=== PATIENT | male | born 1965 | race Hispanic/Latino ===

== ENCOUNTER 2019-08-18 20:14 | Emergency (ER) | payer MEDICARE ==
[2019-08-18 23:18] LABS: Bilirubin,Urine NEG (Negative); Blood,Urine NEG (Negative); Color,Urine Yellow (Yellow); Mucus,Urine FEW /HPF; Protein,Urine <15 mg/dL mg/dL (Negative); Urobilinogen,Urine < 2.0 mg/dL (<2.0); WBC,Urine < 1.0 /HPF (0.0-6.0)
[2019-08-18 23:28] LABS: Amphetamine Screen,Urine PRESUMPTIVE NEGATIVE; Cocaine Screen,Urine PRESUMPTIVE NEGATIVE; Methadone Screen,Urine PRESUMPTIVE NEGATIVE; Opiate Screen,Urine PRESUMPTIVE NEGATIVE
[2019-08-18 23:52] LABS: Benzodiazepines Screen,Urine PRESUMPTIVE POSITIVE; Cannabinoid Screen,Urine PRESUMPTIVE POSITIVE
[2019-08-19 00:30] LABS: Eosinophils # (Auto) 0.3 K/mm3 (0.0-0.4); Eosinophils % (Auto) 5.2 % (0.0-4.3); Hematocrit 37.6 % (35.5-45.6); Lymphocytes # (Auto) 1.3 K/mm3 (1.2-5.4); Lymphocytes % (Auto) 26.8 % (13.4-35.0); Mean Corpuscular HGB Conc 35 % (32-34); Mean Corpuscular Volume 90 fl (84-94); Monocytes # (Auto) 0.6 K/mm3 (0.0-0.8); Platelet Count 125 K/mm3 (140-440); Red Blood Count 4.17 M/mm3 (3.65-5.03)
[2019-08-19 00:50] LABS: BUN/Creatinine Ratio 20; Blood Urea Nitrogen 16 mg/dL (9-20); Calcium 8.8 mg/dL (8.4-10.2); Hemolysis Index 11
--- NOTE | 2019-08-19 02:53 | Emergency Department Report ---
ED General Adult HPI - General Chief complaint: Medical Clearance Stated complaint: MEDICAL CLEARANCE Time Seen by Provider: 08/19/19 02:39 Source: patient Mode of arrival: Ambulatory Limitations: No Limitations - History of Present Illness Initial comments: 52-year-old male with history of alcohol abuse presents to the ED for medical clearance. Patient is seeking admission into [facility]. Patient states he has already detoxed off of alcohol. Associated Symptoms: denies other symptoms Treatments Prior to Arrival: none - Related Data Allergies Allergy/AdvReac Type Severity Reaction Status Date / Time No Known Allergies Allergy Verified 08/18/19 20:22 ED Review of Systems ROS: Stated complaint: MEDICAL CLEARANCE Other details as noted in HPI Comment: All other systems reviewed and negative Psychiatric: denies: auditory hallucinations, homicidal thoughts, suicidal thoughts ED Past Medical Hx - Past Medical History Previous Medical History?: Yes Hx Hypertension: Yes Hx Psychiatric Treatment: Yes (ALCOHOLISM) Additional medical history: afib with RVR, CAD, MYOPATHY - Surgical History Past Surgical History?: Yes Hx Internal Defibrillator: Yes (AICD) - Social History Smoking Status: Current Every Day Smoker Substance Use Type: Alcohol ED Physical Exam - General Limitations: No Limitations General appearance: alert, in no apparent distress - Head Head exam: Present: atraumatic, normocephalic - Eye Eye exam: Present: normal appearance - ENT ENT exam: Present: mucous membranes moist - Neck Neck exam: Present: normal inspection - Respiratory Respiratory exam: Present: normal lung sounds bilaterally. Absent: respiratory distress - Cardiovascular Cardiovascular Exam: Present: regular rate, normal rhythm - GI/Abdominal GI/Abdominal exam: Absent: distended - Extremities Exam Extremities exam: Present: normal inspection - Neurological Exam Neurological exam: Present: alert, oriented X3 - Psychiatric Psychiatric exam: Present: normal affect, normal mood - Skin Skin exam: Present: warm, dry, intact, normal color ED Course Vital Signs 08/18/19 08/18/19 20:24 22:22 Temperature 98.1 F 98 F Pulse Rate 83 80 Respiratory 18 18 Rate Blood Pressure 146/88 146/88 O2 Sat by Pulse 98 98 Oximetry ED Medical Decision Making - Lab Data Result diagrams: 08/18/19 23:53 08/18/19 23:53 - Medical Decision Making Labs unremarkable. Patient is medically clear for [facility] admission. Critical care attestation.: If time is entered above; I have spent that time in minutes in the direct care of this critically ill patient, excluding procedure time. ED Disposition Clinical Impression: Medical clearance for psychiatric admission Disposition: DC-01 TO HOME OR SELFCARE Is pt being admited?: No Condition: Stable Instructions: Abuse of Alcohol (ED) Time of Disposition: 02:57
[2019-08-19 03:38] VITALS: BP 133/97
== END 2019-08-19 03:44 | disposition home or self-care (01) ==
LOC: ED 20:14
DX: I10 Essential (primary) hypertension (principal); F17.200 Nicotine dependence, unspecified, uncomplicated; Z04.6 Encounter for general psychiatric examination, requested by authority; Z98.890 Other specified postprocedural states
CPT/HCPCS: 36415; 80048; 80307; 80320; 81001; 85025; G0480

== ENCOUNTER 2019-11-27 04:01 | Observation (INO) | payer MEDICARE ==
[2019-11-27] MEDS ORDERED: ASPIRIN 325 MG TAB PO ONE ×2 (04:10)
--- NOTE | 2019-11-27 04:12 | Emergency Department Report ---
ED Chest Pain HPI - General Stated Complaint: CHEST PAIN PUI?: No Time Seen by Provider: 11/27/19 04:08 Source: patient, EMS Mode of arrival: Ambulatory Limitations: No Limitations - History of Present Illness Initial Comments: Patient is a 54-year-old male that presents emergency room with complaints of chest pain. Patient states his chest pain started 7 hours ago. Patient states his chest pain is better with rest and worse with exertion. Patient states his chest pain is a 7 out of 10. Patient states that he had a few drinks today. Patient states he has an extensive cardiac history to include CAD, MIs, CHF, AICD. MD Complaint: chest pain -: Sudden Onset: during rest Pain Location: substernal, left chest Pain Radiation: none Severity: severe Consistency: constant Improves With: rest Worsens With: exertion re: denies: nausea, vomting, diaphoresis, dyspnea, sense of impending doom Other Symptoms: denies: cough, fever, syncope, rash, acid taste in mouth, leg swelling, palpitations, burping Treatments Prior to Arrival: none Aspirin use within the Past 7 Days: (1) Yes - Related Data On Oral Contraceptives: No Allergies Allergy/AdvReac Type Severity Reaction Status Date / Time No Known Allergies Allergy Verified 08/18/19 20:22 Heart Score - HEART Score History: Moderately suspicious EKG: Non-specific Age: 45-65 Risk factors: > 3 risk factors or hx of atherosclerotic disease Troponin: < normal limit HEART Score: 5 ED Review of Systems ROS: Stated complaint: CHEST PAIN Other details as noted in HPI Constitutional: denies: chills, fever Eyes: denies: eye pain, eye discharge, vision change ENT: denies: ear pain, throat pain Respiratory: denies: cough, shortness of breath, wheezing Cardiovascular: chest pain. denies: palpitations Endocrine: no symptoms reported Gastrointestinal: denies: abdominal pain, nausea, diarrhea Genitourinary: denies: urgency, dysuria Musculoskeletal: denies: back pain, joint swelling, arthralgia Skin: denies: rash, lesions Neurological: denies: headache, weakness, paresthesias Psychiatric: denies: anxiety, depression Hematological/Lymphatic: denies: easy bleeding, easy bruising ED Past Medical Hx - Past Medical History Previous Medical History?: Yes Hx Hypertension: Yes Hx Heart Attack/AMI: Yes Hx Congestive Heart Failure: Yes Hx Psychiatric Treatment: Yes (ALCOHOLISM) Additional medical history: afib with RVR, CAD, MYOPATHY - Surgical History Past Surgical History?: Yes Hx Internal Defibrillator: Yes (AICD) - Family History Family history: no significant - Social History Smoking Status: Current Every Day Smoker Substance Use Type: Alcohol ED Physical Exam - General General appearance: alert, in no apparent distress - Head Head exam: Present: atraumatic, normocephalic - Eye Eye exam: Present: normal appearance - ENT ENT exam: Present: mucous membranes moist - Neck Neck exam: Present: normal inspection - Respiratory Respiratory exam: Present: normal lung sounds bilaterally. Absent: respiratory distress, wheezes, rales - Cardiovascular Cardiovascular Exam: Present: regular rate, normal rhythm. Absent: systolic murmur, diastolic murmur, rubs, gallop - GI/Abdominal GI/Abdominal exam: Present: soft, normal bowel sounds. Absent: distended, tenderness, guarding - Rectal Rectal exam: Present: deferred - Extremities Exam Extremities exam: Present: normal inspection - Back Exam Back exam: Present: normal inspection - Neurological Exam Neurological exam: Present: alert, oriented X3 - Psychiatric Psychiatric exam: Present: normal affect, normal mood - Skin Skin exam: Present: warm, dry, intact, normal color. Absent: rash ED Course Vital Signs 11/27/19 04:10 Temperature 97.9 F Pulse Rate 82 Respiratory 16 Rate Blood Pressure 123/82 [right arm] O2 Sat by Pulse 100 Oximetry - Reevaluation(s) Reevaluation #1: I discussed all results with patient. I discussed plan of care with patient. Patient agrees with plan of care and admission. Patient to be admitted to the hospitalist service. 11/27/19 05:36 - Consultations Consultation #1: Hospitalist consulted for admission. Hospitalist to admit patient. 11/27/19 05:36 ED Medical Decision Making - Lab Data Result diagrams: 11/27/19 04:27 11/27/19 04:27 - EKG Data -: EKG Interpreted by Me EKG shows normal: axis, intervals, QRS complexes, ST-T waves Rate: normal - EKG Data Interpretation: other (afib) - Radiology Data Radiology results: report reviewed, image reviewed CHEST 1 VIEW 0426 INDICATION / CLINICAL INFORMATION: MAIN: Chest Pain X 1 LA. COMPARISON: None available. FINDINGS: SUPPORT DEVICES: A left subclavian unipolar transvenous pacer is seen with lead tip appearing to be in satisfactory position. HEART / MEDIASTINUM: No significant abnormality. LUNGS / PLEURA: No obvious acute infiltrates are seen. Pulmonary vascularity appears within normal limits. No pleural effusions are seen. Probable mild scarring is seen in the right lateral base. No pneumothorax. ADDITIONAL FINDINGS: No significant additional findings. IMPRESSION: No significant acute abnormality - Medical Decision Making Patient is a 54-year-old male patient that presents emergency room with complaints of chest pain. Patient was drinking today prior to coming to the emergency room. Patient has a significant cardiac history. Patient has a CAD history and will require a rule out of ACS. Patient admitted to the hospitalist service to rule out ACS and further evaluation and treatment. Patient was given aspirin in the ER which improved his pain. Patient is EKG is negative for STEMI but shows A. fib. Patient had a chest x-ray which shows no acute findings. - Differential Diagnosis Chest pain, ACS, CAD Critical Care Time: Yes Critical care time in (mins) excluding proc time.: 35 Critical care attestation.: If time is entered above; I have spent that time in minutes in the direct care of this critically ill patient, excluding procedure time. Critical Care Time: 35 minutes ED Disposition Clinical Impression: Chest pain Qualifiers: Chest pain type: unspecified Qualified Code(s): R07.9 - Chest pain, unspecified CAD (coronary artery disease) Qualifiers: Coronary Disease-Associated Artery/Lesion type: unspecified vessel or lesion type [place] vs. transplanted heart: [place] heart Associated angina: angina presence unspecified Qualified Code(s): I25.10 - Atherosclerotic heart disease of [place] coronary artery without angina pectoris Acute alcohol intoxication Qualifiers: Complication of substance-induced condition: uncomplicated Qualified Code(s): F10.920 - Alcohol use, unspecified with intoxication, uncomplicated Disposition: DC-09 OP ADMIT IP TO THIS HOSP Is pt being admited?: Yes Does the pt Need Aspirin: No Condition: Critical Time of Disposition: 05:36
[2019-11-27 04:46] LABS: Bilirubin,Urine NEG (Negative); Blood,Urine NEG (Negative); Color,Urine Straw (Yellow); Protein,Urine <15 mg/dL mg/dL (Negative); Urobilinogen,Urine < 2.0 mg/dL (<2.0); WBC,Urine < 1.0 /HPF (0.0-6.0)
[2019-11-27 04:52] LABS: Amphetamine Screen,Urine PRESUMPTIVE NEGATIVE; Benzodiazepines Screen,Urine PRESUMPTIVE NEGATIVE; Cocaine Screen,Urine PRESUMPTIVE NEGATIVE; Methadone Screen,Urine PRESUMPTIVE NEGATIVE; Opiate Screen,Urine PRESUMPTIVE NEGATIVE
[2019-11-27 05:07] LABS: Basophils % (Auto) 0.4 % (0.0-1.8); Eosinophils # (Auto) 0.1 K/mm3 (0.0-0.4); Eosinophils % (Auto) 1.9 % (0.0-4.3); Hematocrit 46.7 % (35.5-45.6); Hemoglobin 15.5 gm/dl (11.8-15.2); Lymphocytes # (Auto) 2.4 K/mm3 (1.2-5.4); Lymphocytes % (Auto) 41.4 % (13.4-35.0); Mean Corpuscular HGB Conc 33 % (32-34); Mean Corpuscular Volume 90 fl (84-94); Monocytes # (Auto) 0.5 K/mm3 (0.0-0.8); Monocytes % (Auto) 8.1 % (0.0-7.3); Platelet Count 187 K/mm3 (140-440); Red Blood Count 5.18 M/mm3 (3.65-5.03); Red Cell Distribution Width 16.4 % (13.2-15.2)
[2019-11-27 05:20] LABS: Alanine Aminotransferase 38 units/L (7-56); Albumin 4.4 g/dL (3.9-5); BUN/Creatinine Ratio 15; Blood Urea Nitrogen 9 mg/dL (9-20); Calcium 8.6 mg/dL (8.4-10.2); Hemolysis Index 68
--- NOTE | 2019-11-27 05:25 | XRay Report ---
CHEST 1 VIEW 0426 INDICATION / CLINICAL INFORMATION: MAIN: Chest Pain X 1 LA. COMPARISON: None available. FINDINGS: SUPPORT DEVICES: A left subclavian unipolar transvenous pacer is seen with lead tip appearing to be i n satisfactory position. HEART / MEDIASTINUM: No significant abnormality. LUNGS / PLEURA: No obvious acute infiltrates are seen. Pulmonary vascularity appears within normal li mits. No pleural effusions are seen. Probable mild scarring is seen in the right lateral base. No pne umothorax. ADDITIONAL FINDINGS: No significant additional findings. IMPRESSION: No significant acute abnormality Signer Name: Jose Luis Hamilton MD Signed: 11/27/2019 5:20 AM Workstation Name: [id number]
[2019-11-27 05:34] LABS: Cannabinoid Screen,Urine PRESUMPTIVE POSITIVE
[2019-11-27] MEDS ORDERED: MORPHINE 2 MG/1 ML INJ IV PRN (07:04)
[2019-11-27] MEDS ORDERED: ACETAMINOPHEN 650 MG RECT SUPP PR PRN (07:06)
--- NOTE | 2019-11-27 07:14 | History and Physical Report ---
History of Present Illness Date of examination: 11/10/19 Date of admission: 11/27/2019 Chief complaint: Chief complaint is chest pain History of present illness: History of presenting illness, patient is a 54-year-old male who has been having retrosternal chest pain going on for some hours and associated with shortness of breath, there is no history of fever or chills and no history of cough. Patient also denied history of nausea and vomiting and denied history of diaphoresis Past History Past Medical History: acute MS, atrial fib, CAD, heart failure Past Surgical History: Other (AICD) Social history: no significant social history Family history: no significant family history Medications and Allergies Allergies Allergy/AdvReac Type Severity Reaction Status Date / Time No Known Allergies Allergy Verified 08/18/19 20:22 Active Meds: Active Medications Acetaminophen (Tylenol) 650 mg UT Q4H PRN PRN Reason: Pain, Mild (1-3) Aspirin (Aspirin) 325 mg PO QDAY DI Heparin Sodium (Porcine) (Heparin) 5,000 unit SUB-Q Q12HR DI Morphine Sulfate (Morphine) 2 mg IV Q5MIN PRN PRN Reason: Chest Pain unrelieved by NTG Nitroglycerin (Nitro-Bid 2%) 0.5 inch TP QIDNTG DI; Protocol Nitroglycerin (Nitrostat) 0.4 mg SL .Q5MIN PRN PRN Reason: Chest Pain Ondansetron HCl (Zofran) 4 mg IV Q8H PRN PRN Reason: Nausea And Vomiting Review of Systems Constitutional: no weight loss, no weight gain, no fever, no chills, no sweats, no anorexia, no fatigue, no weakness, no malaise Eyes: bilateral: other (NO BILATERASL EYE SYMPTOMS) Ears, nose, mouth and throat: no ear pain, no ear discharge, no tinnitis, no decreased hearing, no nose pain, no nasal congestion, no nasal discharge, no dental pain, no dysphagia, no hoarseness, no sore throat, no swelling in mouth, no swelling in throat, no headache, no vertigo Cardiovascular: chest pain, shortness of breath, no orthopnea, no syncope, no lightheadedness, no claudication, no phlebitis, no high blood pressure Respiratory: shortness of breath, no cough, no excessive sputum, no hemoptysis, no congestion, no wheezing Gastrointestinal: no abdominal pain, no nausea, no vomiting, no diarrhea, no constipation, no hematochezia, no loss of appetite, no early satiety, no heartburn Genitourinary Male: no dysuria, no flank pain, no discharge, no urinary frequency, no nocturia, no testicular lump Rectal: no pain Integumentary: no rash, no pruritis, no redness, no sores, no wounds, no jaundice, no bullae, no lesions, no darkening of skin, no depigmentation, no acne, no striae, no hirsutism, no foot/leg ulcers Neurological: no head injury, no weakness, no parathesias, no numbness, no seizures, no syncope, no tremors, no vertigo, no headaches, no convulsions, no aphasia, no double vision, no loss of vision Psychiatric: no anxiety, no insomnia, no change in appetite, no depression, no hopelessness Endocrine: no cold intolerance, no heat intolerance, no polyuria, no nocturia, no deepening of the voice, no thyroid mass, no palpatations, no high blood sugars, no low blood sugars Hematologic/Lymphatic: no easy bruising, no easy bleeding, no lymphadenopathy, no lymphedema Allergic/Immunologic: no urticaria, no allergic rhinitis, no persistent infecti ons, no anaphylaxis, no gluten intolerance, no seasonal allergies Exam - Constitutional Vitals: Temp Pulse Resp BP Pulse Ox 97.9 F 83 17 137/102 93 11/27/19 04:10 11/27/19 06:11 11/27/19 06:11 11/27/19 06:11 11/27/19 06:11 General appearance: Present: no acute distress - EENT Eyes: Present: PERRL, EOM intact - Neck Neck: Present: supple, normal ROM - Respiratory Respiratory effort: normal - Cardiovascular Rhythm: regular Heart Sounds: Present: S1 & S2. Absent: gallop, systolic murmur, diastolic murmur, rub - Extremities Extremities: no ischemia, No edema Peripheral Pulses: within normal limits - Abdominal General gastrointestinal: Present: non-tender, non-distended. Absent: soft, tender, distended, rigid, hepatomegaly, splenomegaly Male genitourinary: Present: deferred - Rectal Rectal Exam: deferred - Integumentary Integumentary: Present: clear, warm. Absent: dry, jaundice, rash, clammy - Musculoskeletal Musculoskeletal: strength equal bilaterally - Psychiatric Psychiatric: appropriate mood/affect MICHELLE score - Michelle Score Aspirin use within the Past 7 Days: (1) Yes Results - Labs CBC & Chem 7: 11/27/19 04:27 11/27/19 04:27 Labs: Laboratory Last Values WBC 5.8 K/mm3 (4.5-11.0) 11/27/19 04: RBC 5.18 M/mm3 (3.65-5.03) H 11/27/19 04:27 Hgb 15.5 gm/dl (11.8-15.2) H 11/27/19 04: Hct 46.7 % (35.5-45.6) H 11/27/19 04: MCV 90 fl (84-94) 11/27/19 04: MCH 30 pg (28-32) 11/27/19 04: MCHC 33 % (32-34) 11/27/19 04: RDW 16.4 % (13.2-15.2) H 11/27/19 04: Plt Count 187 K/mm3 (140-440) 11/27/19 04: Lymph % (Auto) 41.4 % (13.4-35.0) H 11/27/19 04: [place] % (Auto) 8.1 % (0.0-7.3) H 11/27/19 04: Eos % (Auto) 1.9 % (0.0-4.3) 11/27/19 04: Baso % (Auto) 0.4 % (0.0-1.8) 11/27/19 04:27 Lymph # 2.4 K/mm3 (1.2-5.4) 11/27/19 04: [place] # 0.5 K/mm3 (0.0-0.8) 11/27/19 04:27 Eos # 0.1 K/mm3 (0.0-0.4) 11/27/19 04:27 Baso # 0.0 K/mm3 (0.0-0.1) 11/27/19 04: Seg Neutrophils % 48.2 % (40.0-70.0) 11/27/19 04:27 Seg Neutrophils # 2.8 K/mm3 (1.8-7.7) 11/27/19 04:27 Sodium 143 mmol/L (137-145) 11/27/19 04:27 Potassium 4.4 mmol/L (3.6-5.0) 11/27/19 04:27 Chloride 102.8 mmol/L (98-107) 11/27/19 04:27 Carbon Dioxide 22 mmol/L (22-30) 11/27/19 04:27 Anion Gap 23 mmol/L 11/27/19 04:27 BUN 9 mg/dL (9-20) 11/27/19 04:27 Creatinine 0.6 mg/dL (0.8-1.5) L 11/27/19 04:27 Estimated GFR > 60 ml/min 11/27/19 04:27 BUN/Creatinine Ratio 15 % 11/27/19 04:27 Glucose 83 mg/dL (75-100) 11/27/19 04:27 Calcium 8.6 mg/dL (8.4-10.2) 11/27/19 04:27 Total Bilirubin 0.40 mg/dL (0.1-1.2) 11/27/19 04:27 AST 66 units/L (5-40) H 11/27/19 04:27 ALT 38 units/L (7-56) 11/27/19 04:27 Alkaline Phosphatase 92 units/L (35-129) 11/27/19 04:27 Troponin T < 0.010 ng/mL (0.00-0.029) 11/27/19 04:27 Total Protein 7.8 g/dL (6.3-8.2) 11/27/19 04:27 Albumin 4.4 g/dL (3.9-5) 11/27/19 04:27 Albumin/Globulin Ratio 1.3 % 11/27/19 04:27 Urine Color Straw (Yellow) 11/27/19 04:10 Urine Turbidity Clear (Clear) 11/27/19 04:10 Urine pH 5.0 (5.0-7.0) 11/27/19 04:10 Ur Specific [place] 1.009 (1.003-1.030) 11/27/19 04:10 Urine Protein <15 mg/dl mg/dL (Negative) 11/27/19 04:10 Urine Glucose (UA) Neg mg/dL (Negative) 11/27/19 04:10 Urine Ketones Neg mg/dL (Negative) 11/27/19 04:10 Urine Blood Neg (Negative) 11/27/19 04:10 Urine Nitrite Neg (Negative) 11/27/19 04:10 Urine Bilirubin Neg (Negative) 11/27/19 04:10 Urine Urobilinogen < 2.0 mg/dL (<2.0) 11/27/19 04:10 Ur Leukocyte Esterase Neg (Negative) 11/27/19 04:10 Urine WBC (Auto) < 1.0 /HPF (0.0-6.0) 11/27/19 04:10 Urine RBC (Auto) 1.0 /HPF (0.0-6.0) 11/27/19 04:10 U Epithel Cells (Auto) < 1.0 /HPF (0-13.0) 11/27/19 04:10 Urine Opiates Screen Presumptive negative 11/27/19 04:10 Urine Methadone Screen Presumptive negative 11/27/19 04:10 Ur Barbiturates Screen Presumptive negative 11/27/19 04:10 Ur Phencyclidine Scrn Presumptive negative 11/27/19 04:10 Ur Amphetamines Screen Presumptive negative 11/27/19 04:10 U Benzodiazepines Scrn Presumptive negative 11/27/19 04:10 Urine Cocaine Screen Presumptive negative 11/27/19 04:10 U Marijuana (THC) Screen Presumptive positive 11/27/19 04:10 Drugs of Abuse Note Disclamer 11/27/19 04:10 Plasma/Serum Alcohol 0.34 % (0-0.07) H 11/27/19 04:27 Assessment and Plan - Patient Problems (1) Acute alcohol intoxication Current Visit: Yes Status: Acute Qualifiers: Complication of substance-induced condition: uncomplicated Qualified Code(s): F10.920 - Alcohol use, unspecified with intoxication, uncomplicated (2) CAD (coronary artery disease) Current Visit: Yes Status: Acute Qualifiers: Coronary Disease-Associated Artery/Lesion type: unspecified vessel or lesion type [place] vs. transplanted heart: [place] heart Associated angina: angina presence unspecified Qualified Code(s): I25.10 - Atherosclerotic heart disease of [place] coronary artery without angina pectoris (3) Chest pain Current Visit: Yes Status: Acute Qualifiers: Chest pain type: unspecified Qualified Code(s): R07.9 - Chest pain, unspecified Plan to address problem: 1 patient will be on chest pain observation plan and will be on telemetry 2. Patient will have serial cardiac enzyme involving troponin total CPK and CK and CK-MB check 6 hourly x2 more levels 3. Patient will be on Nitropaste half inch to anterior chest wall every 6 hours 4 patient will have cardiology consult with Dr. Bloom because of chest pain atrial fibrillation and presence of AICD placement 5 patient will be on IV morphine 2mg every 5 minutes as needed for chest pain per protocol 6. Patient will be on IV Zofran 4 mg every 6 hours as needed for nausea and vomiting 7 patient will be on oxygen by nasal cannula at 2 L/min and will be on Tylenol 650 mg by mouth every 4 hours for fever headache
[2019-11-27] MEDS ORDERED: ONDANSETRON 4 MG/2 ML INJ IV PRN (07:30)
[2019-11-27] MEDS ORDERED: NITROGLYCERIN 0.4 MG TAB SUBL SL PRN (07:30)
[2019-11-27] MEDS ORDERED: LORazepam 2 MG/ML VIAL IV PRN ×3 (08:35)
[2019-11-27] MEDS ORDERED: THIAMINE 100 MG, FOLIC ACID 1 MG, MULTIPLE VITAMIN INJ, ADULT 10 ML in SODIUM CHLORIDE ... IV ONE (09:00)
[2019-11-27] MEDS ORDERED: HEPARIN 5,000 UNIT/1 ML VIAL SUB-Q SCH (10:00)
[2019-11-27] MEDS ORDERED: NITROGLYCERIN 2% OINT 1 GM TP SCH (10:00)
[2019-11-27] MEDS ORDERED: ASPIRIN 325 MG TAB PO SCH (10:00)
[2019-11-27 10:32] VITALS: BP 120/90
== END 2019-11-27 10:32 | disposition left against medical advice (07) ==
LOC: ED 04:01 → SUATTDRO 04:01 → 4A 05:37
PROVIDERS: ADMIT Internal Medicine; ATTEND Internal Medicine
DX: R07.89 Other chest pain (principal); I25.10 Atherosclerotic heart disease of native coronary artery without angina pectoris; F10.920 Alcohol use, unspecified with intoxication, uncomplicated; I25.2 Old myocardial infarction; I48.91 Unspecified atrial fibrillation; I11.0 Hypertensive heart disease with heart failure; I50.9 Heart failure, unspecified; Z95.810 Presence of automatic (implantable) cardiac defibrillator; Z79.82 Long term (current) use of aspirin; Z79.899 Other long term (current) drug therapy
CPT/HCPCS: 36415; 71045; 80053; 80307; 81001; 84484; 85025; 93005; 99291; G0378; J3411; J7030; 80320; G0480

== ENCOUNTER 2019-12-24 20:28 | Observation (INO) | payer MEDICARE ==
[2019-12-24] MEDS ORDERED: ASPIRIN 325 MG TAB PO ONE (21:15)
--- NOTE | 2019-12-24 21:18 | Emergency Department Report ---
ED Chest Pain HPI - General Chief Complaint: Alcohol Stated Complaint: POSSIBLE ETOH CHEST PAIN PUI?: No Time Seen by Provider: 12/24/19 21:14 Source: EMS Mode of arrival: Stretcher Limitations: No Limitations, Altered Mental Status - History of Present Illness Initial Comments: Patient is a 54-year-old male that presents emergency room with complaints of chest pain and shortness of breath x3 hours. Patient states his been drinking today. Patient states he does not know how much he drank. Patient is answering questions appropriately. Patient states that his chest pain is in the center of his chest and is nonradiating. Patient states it is a 8 out of 10. Patient states that his chest pain or shortness of breath are better with rest and worse with exertion. Patient states he has a past medical history of CAD, DC, A. fib, AICD, smoking. Patient states he drinks every day. MD Complaint: chest pain -: Sudden, hour(s) Onset: during rest Pain Location: substernal, left chest Pain Radiation: none Severity: severe Severity scale (0 -10): 8 Quality: heaviness, sharp Consistency: constant Improves With: rest Worsens With: exertion re: dyspnea. denies: nausea, vomting, diaphoresis, sense of impending doom Other Symptoms: denies: cough, fever, syncope, rash, acid taste in mouth, leg swelling, palpitations, burping Treatments Prior to Arrival: none Aspirin use within the Past 7 Days: (0) No - Related Data On Oral Contraceptives: No Allergies Allergy/AdvReac Type Severity Reaction Status Date / Time No Known Allergies Allergy Verified 08/18/19 20:22 Heart Score - HEART Score History: Moderately suspicious EKG: Non-specific Age: 45-65 Risk factors: > 3 risk factors or hx of atherosclerotic disease Troponin: < normal limit HEART Score: 5 ED Review of Systems ROS: Stated complaint: POSSIBLE ETOH CHEST PAIN Other details as noted in HPI Constitutional: denies: chills, fever Eyes: denies: eye pain, eye discharge, vision change ENT: denies: ear pain, throat pain Respiratory: shortness of breath, SOB with exertion, SOB at rest. denies: cough, wheezing Cardiovascular: chest pain, dyspnea on exertion. denies: palpitations Endocrine: no symptoms reported Gastrointestinal: denies: abdominal pain, nausea, diarrhea Genitourinary: denies: urgency, dysuria Musculoskeletal: denies: back pain, joint swelling, arthralgia Skin: denies: rash, lesions Neurological: denies: headache, weakness, paresthesias Psychiatric: denies: anxiety, depression Hematological/Lymphatic: denies: easy bleeding, easy bruising ED Past Medical Hx - Past Medical History Previous Medical History?: Yes Hx Hypertension: Yes Hx Heart Attack/AMI: Yes Hx Congestive Heart Failure: Yes Hx Psychiatric Treatment: Yes (ALCOHOLISM) Hx COPD: Yes Additional medical history: afib with RVR, CAD, MYOPATHY - Surgical History Past Surgical History?: Yes Hx Internal Defibrillator: Yes (AICD) - Family History Family history: no significant - Social History Smoking Status: Current Every Day Smoker Substance Use Type: Alcohol, Marijuana ED Physical Exam - General Limitations: No Limitations General appearance: alert, in no apparent distress - Head Head exam: Present: atraumatic, normocephalic - Eye Eye exam: Present: normal appearance - ENT ENT exam: Present: mucous membranes dry - Neck Neck exam: Present: normal inspection - Respiratory Respiratory exam: Present: normal lung sounds bilaterally. Absent: respiratory distress, wheezes, rales - Cardiovascular Cardiovascular Exam: Present: regular rate, normal rhythm. Absent: systolic murmur, diastolic murmur, rubs, gallop - GI/Abdominal GI/Abdominal exam: Present: soft, normal bowel sounds - Rectal Rectal exam: Present: deferred - Extremities Exam Extremities exam: Present: normal inspection - Back Exam Back exam: Present: normal inspection - Neurological Exam Neurological exam: Present: alert, oriented X3 - Psychiatric Psychiatric exam: Present: normal affect, normal mood - Skin Skin exam: Present: warm, dry, intact, normal color. Absent: rash ED Course Vital Signs 12/24/19 12/24/19 12/24/19 20:45 20:48 21:17 Temperature 98.9 F Pulse Rate 55 L 57 L 58 L Respiratory 14 16 16 Rate Blood Pressure 109/73 109/73 [Right] O2 Sat by Pulse 97 97 98 Oximetry 12/24/19 12/24/19 21:49 23:43 Temperature 97.8 F Pulse Rate 56 L Respiratory 18 Rate Blood Pressure 95/70 [Right] O2 Sat by Pulse 98 Oximetry - Reevaluation(s) Reevaluation #1: I discussed all results with patient. I discussed plan of care with patient. Patient agrees with plan of care and admission. Patient to be admitted to the hospitalist service. 12/24/19 23:06 - Consultations Consultation #1: Hospitalist consulted for admission. Hospitalist to admit patient. 12/24/19 23:06 - EJ/Peripheral Line Neck R Time Out Performed: Yes Indications: nurses unable to establis Skin Cleansed in Sterile Fashion: Yes Size: 20 Dressing Placed: Tegaderm, tape Patient Tolerated Procedure: well, no complications MICHELLE score - Michelle Score Age > 65: (1) Yes Aspirin use within the Past 7 Days: (1) Yes 3 or more CAD Risk Factors: (1) Yes 2 or more Angina events in past 24 hrs: (0) No Known CAD with more than 50% Stenosis: (0) No Elevated Cardiac Markers: (0) No ST Deviation Greater than 0.5mm: (0) No MICHELLE Score: 3 ED Medical Decision Making - Lab Data Result diagrams: 12/24/19 21:33 12/24/19 21:33 - EKG Data -: EKG Interpreted by Ca EKG shows normal: intervals, QRS complexes, ST-T waves Rate: normal - EKG Data Interpretation: other (Atrial fib, V pacer) - Radiology Data Radiology results: report reviewed, image reviewed CHEST 1 VIEW INDICATION / CLINICAL INFORMATION: Chest Pain. COMPARISON: 11/27/2019 FINDINGS: SUPPORT DEVICES: Left-sided pacemaker HEART / MEDIASTINUM: No significant abnormality. LUNGS / PLEURA: No significant pulmonary or pleural abnormality. No p neumothorax. ADDITIONAL FINDINGS: No significant additional findings. IMPRESSION: No acute disease or interval change from 11/27/2019 - Medical Decision Making Patient is a 54-year-old male that presents emergency room with complaints of chest pain. Patient intoxicated. Patient has a long cardiac history. Patient's heart score is elevated. Patient's labs are essentially unremarkable except for elevated blood alcohol and UDS positive for THC and cocaine. Patient admitted to the hospitalist service to rule out ACS and for further evaluation and treatment. Patient given aspirin early in his ER stay. Patient's chest x- ray is negative for acute findings. Patient's EKG does not show a STEMI. Patient's EKG shows A. fib and a regular rate. - Differential Diagnosis Chest pain, ACS, intoxication, drug use, S OB Critical Care Time: Yes Critical care time in (mins) excluding proc time.: 35 Critical care attestation.: If time is entered above; I have spent that time in minutes in the direct care of this critically ill patient, excluding procedure time. Critical Care Time: 35 minutes ED Disposition Clinical Impression: SOB (shortness of breath), Cocaine abuse CAD (coronary artery disease) Qualifiers: Coronary Disease-Associated Artery/Lesion type: kaw artery [place] vs. transplanted heart: kaw heart Associated angina: with unspecified angina Qualified Code(s): I25.119 - Atherosclerotic heart disease of kaw coronary artery with unspecified angina pectoris Chest pain Qualifiers: Chest pain type: unspecified Qualified Code(s): R07.9 - Chest pain, unspecified Acute alcohol intoxication Qualifiers: Complication of substance-induced condition: uncomplicated Qualified Code(s): F10.920 - Alcohol use, unspecified with intoxication, uncomplicated Disposition: DC-09 OP ADMIT IP TO THIS HOSP Is pt being admited?: Yes Does the pt Need Aspirin: No Condition: Critical Time of Disposition: 23:07
[2019-12-24 21:45] LABS: Basophils # (Auto) 0.1 K/mm3 (0.0-0.1); Eosinophils # (Auto) 0.2 K/mm3 (0.0-0.4); Eosinophils % (Auto) 3.1 % (0.0-4.3); Hematocrit 43.6 % (35.5-45.6); Hemoglobin 14.6 gm/dl (11.8-15.2); Lymphocytes # (Auto) 3.1 K/mm3 (1.2-5.4); Lymphocytes % (Auto) 40.4 % (13.4-35.0); Mean Corpuscular HGB Conc 34 % (32-34); Mean Corpuscular Volume 89 fl (84-94); Monocytes # (Auto) 0.7 K/mm3 (0.0-0.8); Monocytes % (Auto) 9.4 % (0.0-7.3); Platelet Count 294 K/mm3 (140-440); Red Blood Count 4.88 M/mm3 (3.65-5.03); Red Cell Distribution Width 14.9 % (13.2-15.2)
[2019-12-24 21:56] LABS: INR 1.09 (0.87-1.13); Partial Thromboplastin Time 37.1 Sec. (24.2-36.6)
[2019-12-24 22:08] LABS: Alanine Aminotransferase 27 units/L (7-56); BUN/Creatinine Ratio 10; Blood Urea Nitrogen 7 mg/dL (9-20); Calcium 8.4 mg/dL (8.4-10.2); Hemolysis Index 11
--- NOTE | 2019-12-24 22:20 | XRay Report ---
CHEST 1 VIEW INDICATION / CLINICAL INFORMATION: Chest Pain. COMPARISON: 11/27/2019 FINDINGS: SUPPORT DEVICES: Left-sided pacemaker HEART / MEDIASTINUM: No significant abnormality. LUNGS / PLEURA: No significant pulmonary or pleural abnormality. No pneumothorax. ADDITIONAL FINDINGS: No significant additional findings. IMPRESSION: No acute disease or interval change from 11/27/2019 Signer Name: Kurtis Vivar MD FACR Signed: 12/24/2019 10:16 PM Workstation Name: [id number]
[2019-12-24 22:24] LABS: Bilirubin,Urine NEG (Negative); Blood,Urine NEG (Negative); Color,Urine Straw (Yellow); Protein,Urine <15 mg/dL mg/dL (Negative); Urobilinogen,Urine < 2.0 mg/dL (<2.0)
[2019-12-24 22:31] LABS: Amphetamine Screen,Urine PRESUMPTIVE NEGATIVE; Benzodiazepines Screen,Urine PRESUMPTIVE NEGATIVE; Methadone Screen,Urine PRESUMPTIVE NEGATIVE; Opiate Screen,Urine PRESUMPTIVE NEGATIVE
[2019-12-24 22:44] LABS: Cannabinoid Screen,Urine PRESUMPTIVE POSITIVE; Cocaine Screen,Urine PRESUMPTIVE POSITIVE
[2019-12-24] MEDS ORDERED: LORazepam 2 MG/ML VIAL IV PRN ×3 (23:30)
[2019-12-24] MEDS ORDERED: MORPHINE 2 MG/1 ML INJ IV PRN (23:48)
[2019-12-24] MEDS ORDERED: ONDANSETRON 4 MG/2 ML INJ IV PRN (23:48)
[2019-12-24] MEDS ORDERED: MAGNESIUM HYDROXIDE (MOM) ORAL LIQD UDC PO PRN (23:48)
[2019-12-24] MEDS ORDERED: NITROGLYCERIN 0.4 MG TAB SUBL SL PRN (23:48)
[2019-12-24] MEDS ORDERED: ACETAMINOPHEN 325 MG TAB PO PRN (23:48)
--- NOTE | 2019-12-25 00:02 | History and Physical Report ---
History of Present Illness Date of examination: 12/24/19 Date of admission: 12/24/19 23:11 Chief complaint: Chest pain History of present illness: 54-year-old male with known history of coronary artery disease, A. fib, and history of AICD presenting to the emergency room today complaining of mid sternal chest pain. There is no radiation of his pain. Chest pain is said to be worse on exertion and improves with rest. He has been no radiation of his chest pain around the scale of 10 pain was about 8/10. He has had associated shortness of breath, no nausea vomiting, no diarrhea, no abdominal pain. Patient admits that he has been drinking alcohol lately and also continues to abuse cocaine. Patient denies any fever or chills, no history of recent travel and no sick contacts. Work-up so far in the emergency room has been unremarkable. Past History Past Medical History: atrial fib, CAD, heart failure, hypertension Past Surgical History: Other (AICD placement) Social history: smoking (Daily tobacco user), alcohol abuse, other (Uses cocaine) Family history: no significant family history Medications and Allergies Allergies Allergy/AdvReac Type Severity Reaction Status Date / Time No Known Allergies Allergy Verified 08/18/19 20:22 Active Meds: Active Medications Acetaminophen (Tylenol) 650 mg PO Q4H PRN PRN Reason: Pain MILD(1-3)/Fever >100.5/CASTANO Aspirin (Ecotrin) 325 mg PO QDAY DI Lorazepam (Ativan) 2 mg IV Q1HR PRN PRN Reason: CIWA-Ar 8-15 Lorazepam (Ativan) 4 mg IV Q1HR PRN PRN Reason: CIWA-Ar 16-25 Lorazepam (Ativan) 4 mg IV Q15MIN PRN PRN Reason: CIWA-Ar >25 Magnesium Hydroxide (Milk Of Magnesia) 30 ml PO Q4H PRN PRN Reason: Constipation Morphine Sulfate (Morphine) 2 mg IV Q5MIN PRN PRN Reason: Chest Pain unrelieved by NTG Nitroglycerin (Nitrostat) 0.4 mg SL Q5M PRN PRN Reason: Chest Pain Ondansetron HCl (Zofran) 4 mg IV Q8H PRN PRN Reason: Nausea And Vomiting Sodium Chloride (Sodium Chloride Flush Syringe 10 Ml) 10 ml IV BID DI Sodium Chloride (Sodium Chloride Flush Syringe 10 Ml) 10 ml IV PRN PRN PRN Reason: LINE FLUSH Sodium Chloride (Sodium Chloride Flush Syringe 10 Ml) 10 ml IV PRN PRN PRN Reason: LINE FLUSH Review of Systems Constitutional: no fever, no chills Ears, nose, mouth and throat: no dysphagia, no vertigo Cardiovascular: chest pain, palpitations Respiratory: no cough, no shortness of breath Gastrointestinal: no abdominal pain, no nausea, no vomiting, no diarrhea Genitourinary Male: no dysuria, no hematuria, no nocturia Integumentary: no rash, no pruritis Neurological: no headaches, no confusion Psychiatric: no anxiety, no depression Exam - Constitutional Vitals: Temp Pulse Resp BP Pulse Ox 97.8 F 56 L 18 95/70 98 12/24/19 21:49 12/24/19 23:43 12/24/19 23:43 12/24/19 23:43 12/24/19 23:43 General appearance: Present: no acute distress, well-nourished - EENT Eyes: Present: PERRL, EOM intact ENT: hearing intact, clear oral mucosa, dentition normal - Neck Neck: Present: supple, normal ROM - Respiratory Respiratory effort: normal Respiratory: bilateral: CTA - Cardiovascular Rhythm: regular Heart Sounds: Present: S1 & S2 - Extremities Extremities: no ischemia, pulses intact, pulses symmetrical, No edema, Full ROM Peripheral Pulses: within normal limits - Abdominal General gastrointestinal: Present: soft, non-tender, non-distended, normal bowel sounds - Integumentary Integumentary: Present: clear, warm, dry - Musculoskeletal Musculoskeletal: strength equal bilaterally - Psychiatric Psychiatric: appropriate mood/affect, intact judgment & insight, cooperative - Neurologic Neurologic: CNII-XII intact, moves all extremities HEART Score - HEART Score EKG: Non-specific Age: 45-65 Risk factors: > 3 risk factors or hx of atherosclerotic disease Troponin: Troponin T < 0.010 ng/mL (0.00-0.029) 12/24/19 21:33 Results - Labs CBC & Chem 7: 12/25/19 05:21 12/25/19 02:11 Labs: Abnormal lab results 12/24/19 12/24/19 12/24/19 Range/Units 21:33 21:33 21:33 Lymph % (Auto) 40.4 H (13.4-35.0) % Letcher % (Auto) 9.4 H (0.0-7.3) % APTT 37.1 H (24.2-36.6) Sec. Carbon Dioxide 21 L (22-30) mmol/L BUN 7 L (9-20) mg/dL Creatinine 0.7 L (0.8-1.5) mg/dL Salicylates (2.8-20.0) mg/dL Acetaminophen (10.0-30.0) ug/mL Plasma/Serum Alcohol (0-0.07) % 12/24/19 12/24/19 12/24/19 Range/Units 21:33 21:33 21:33 Lymph % (Auto) (13.4-35.0) % Letcher % (Auto) (0.0-7.3) % APTT (24.2-36.6) Sec. Carbon Dioxide (22-30) mmol/L BUN (9-20) mg/dL Creatinine (0.8-1.5) mg/dL Salicylates < 0.3 L (2.8-20.0) mg/dL Acetaminophen < 5.0 L (10.0-30.0) ug/mL Plasma/Serum Alcohol 0.37 H (0-0.07) % Assessment and Plan - Patient Problems (1) Chest pain Current Visit: Yes Status: Acute Qualifiers: Chest pain type: unspecified Qualified Code(s): R07.9 - Chest pain, unspecified Plan to address problem: Patient admitted and placed on telemetry. Will check serial cardiac enzymes. P atient placed on daily aspirin, sublingual nitroglycerin and IV morphine as needed for chest pain. Patient has known history of coronary artery disease. We will place a consult to cardiology for further evaluation (2) Acute alcohol intoxication Current Visit: Yes Status: Acute Qualifiers: Complication of substance-induced condition: uncomplicated Plan to address problem: Counseled on quitting alcohol abuse. Will monitor for alcohol withdrawal symptoms. (3) Cocaine abuse Current Visit: Yes Status: Acute Plan to address problem: Counseled on quitting cocaine use. (4) DVT prophylaxis Current Visit: Yes Status: Acute Plan to address problem: Patient placed on subcutaneous heparin. (5) Full code status Current Visit: Yes Status: Acute
[2019-12-25 03:17] LABS: BUN/Creatinine Ratio 12; Blood Urea Nitrogen 7 mg/dL (9-20); Calcium 8.3 mg/dL (8.4-10.2); Hemolysis Index 95
[2019-12-25] MEDS ORDERED: HEPARIN 5,000 UNIT/1 ML VIAL SUB-Q SCH (06:00)
[2019-12-25 06:33] LABS: Basophils % (Auto) 0.8 % (0.0-1.8); Eosinophils # (Auto) 0.2 K/mm3 (0.0-0.4); Eosinophils % (Auto) 5.1 % (0.0-4.3); Hematocrit 43.5 % (35.5-45.6); Hemoglobin 14.2 gm/dl (11.8-15.2); Lymphocytes # (Auto) 1.8 K/mm3 (1.2-5.4); Lymphocytes % (Auto) 38.9 % (13.4-35.0); Mean Corpuscular HGB Conc 33 % (32-34); Mean Corpuscular Volume 93 fl (84-94); Monocytes # (Auto) 0.5 K/mm3 (0.0-0.8); Monocytes % (Auto) 10.6 % (0.0-7.3); Platelet Count 273 K/mm3 (140-440); Red Blood Count 4.68 M/mm3 (3.65-5.03); Red Cell Distribution Width 15.5 % (13.2-15.2)
[2019-12-25 06:41] LABS: INR 1.01 (0.87-1.13)
[2019-12-25 06:54] LABS: BUN/Creatinine Ratio 11; Blood Urea Nitrogen 8 mg/dL (9-20); Calcium 8.4 mg/dL (8.4-10.2); Hemolysis Index 20
[2019-12-25] MEDS ORDERED: ASPIRIN EC 325 MG TAB PO SCH (10:00)
[2019-12-25] MEDS ORDERED: REGADENOSON 0.4 MG/5 ML INJ IV ONE ×2 (10:24→10:25)
--- NOTE | 2019-12-25 12:09 | Consultation ---
History of Present Illness Consult date: 12/25/19 Consult reason: chest pain History of present illness: The patient is a 54-year-old man with a long cardiac history of a dilated non ischemic cardiomyopathy and chronic alcohol abuse. In 2012, he underwent placement of a single-chamber ICD at [facility]. He said at the time his left ventricular ejection fraction was 30%. Prior to the ICD implantation, a cardiac catheterization was done that showed no significant coronary artery disease. He also reports chronic atrial fibrillation, for which he is nominally on Eliquis prescribed by his [place] back padder. In addition to Eliquis, he reports that he takes lisinopril, metoprolol, baby aspirin, amiodarone, furosemide and potassium. He does admit to poor compliance with his medications and his cardiology outpatient visits, his last ICD interrogation was 6 months ago. He presents to the hospital at this time reportedly for alcohol intoxication. In the emergency room, his alcohol level was 0.37. He otherwise reports to me that he has no other cardiac complaints, except that on review of systems he mentioned that he occasionally has chest pain. There is no anginal type symptoms, no unusual shortness of breath, no palpitations, no ICD discharge, and no edema. EKG is atrial fibrillation with a well-controlled ventricular rate, nonspecific ST and T wave changes, no acute ischemia. Chest x-ray revealed mild cardiomegaly, clear lungs with no interstitial edema or heart failure, and a mild increase in the size of the cardiac silhouette. An echocardiogram done today demonstrated a four-chamber dilated cardiomyopathy, with left ventricular ejection fraction about 25 to 30%. Otherwise, no significant valvular lesions. He was ordered for a Lexiscan stress test by the medical service, but the patient refuses, he has no history of coronary artery disease, and has no anginal chest pain. Past History Past Medical History: atrial fib, heart failure, hypertension Past Surgical History: Other (AICD placement) Social history: smoking (Daily tobacco user), alcohol abuse, other (Uses cocaine) Family history: no significant family history Medications and Allergies Allergies Allergy/AdvReac Type Severity Reaction Status Date / Time No Known Allergies Allergy Verified 08/18/19 20:22 Active Meds: Active Medications Acetaminophen (Tylenol) 650 mg PO Q4H PRN PRN Reason: Pain MILD(1-3)/Fever >100.5/CASTANO Aspirin (Ecotrin) 325 mg PO QDAY [facility] Last Admin: 12/25/19 11:14 Dose: 325 mg Documented by: Heparin Sodium (Porcine) (Heparin) 5,000 unit SUB-Q Q8HR [facility] Last Admin: 12/25/19 07:17 Dose: Not Given Documented by: Lorazepam (Ativan) 2 mg IV Q1HR PRN PRN Reason: CIWA-Ar 8-15 Lorazepam (Ativan) 4 mg IV Q1HR PRN PRN Reason: CIWA-Ar 16-25 Lorazepam (Ativan) 4 mg IV Q15MIN PRN PRN Reason: CIWA-Ar >25 Magnesium Hydroxide (Milk Of Magnesia) 30 ml PO Q4H PRN PRN Reason: Constipation Morphine Sulfate (Morphine) 2 mg IV Q5MIN PRN PRN Reason: Chest Pain unrelieved by NTG Nitroglycerin (Nitrostat) 0.4 mg SL Q5M PRN PRN Reason: Chest Pain Ondansetron HCl (Zofran) 4 mg IV Q8H PRN PRN Reason: Nausea And Vomiting Sodium Chloride (Sodium Chloride Flush Syringe 10 Ml) 10 ml IV BID [facility] Last Admin: 12/25/19 11:15 Dose: 10 ml Documented by: Sodium Chloride (Sodium Chloride Flush Syringe 10 Ml) 10 ml IV PRN PRN PRN Reason: LINE FLUSH Review of Systems Cardiovascular: no chest pain, no orthopnea, no palpitations, no rapid/irregular heart beat, no edema, no syncope, no lightheadedness, no shortness of breath Physical Examination Vital Signs Pulse Ox 97 12/24/19 20:44 General appearance: no acute distress HEENT: Positive: PERRL Neck: Positive: neck supple Cardiac: Positive: irregularly irregular Lungs: Positive: Decreased Breath Sounds Neuro: Positive: Grossly Intact Abdomen: Positive: Soft Male genitourinary: Positive: deferred Skin: Positive: Clear Extremities: Absent: edema Results 12/25/19 05:21 12/25/19 05:21 Cardiac Enzymes 12/24/19 Range/Units 21:33 AST 37 (5-40) units/L Coagulation 12/24/19 12/25/19 Range/Units 21:33 05:21 PT 13.9 13.1 (12.2-14.9) Sec. INR 1.09 1.01 (0.87-1.13) APTT 37.1 H (24.2-36.6) Sec. CBC 12/24/19 12/25/19 Range/Units 21:33 05:21 WBC 7.6 4.6 (4.5-11.0) K/mm3 RBC 4.88 4.68 (3.65-5.03) M/mm3 Hgb 14.6 14.2 (11.8-15.2) gm/dl Hct 43.6 43.5 (35.5-45.6) % Plt Count 294 273 (140-440) K/mm3 Lymph # 3.1 1.8 (1.2-5.4) K/mm3 Barry # 0.7 0.5 (0.0-0.8) K/mm3 Eos # 0.2 0.2 (0.0-0.4) K/mm3 Baso # 0.1 0.0 (0.0-0.1) K/mm3 Comprehensive Metabolic Panel 12/24/19 12/25/19 12/25/19 Range/Units 21:33 02:11 05:21 Sodium 139 141 143 (137-145) mmol/L Potassium 3.9 4.5 4.1 (3.6-5.0) mmol/L Chloride 101.0 101.0 100.1 (98-107) mmol/L Carbon Dioxide 21 L 22 22 (22-30) mmol/L BUN 7 L 7 L 8 L (9-20) mg/dL Creatinine 0.7 L 0.6 L 0.7 L (0.8-1.5) mg/dL Glucose 93 90 87 (75-100) mg/dL Calcium 8.4 8.3 L 8.4 (8.4-10.2) mg/dL AST 37 (5-40) units/L ALT 27 (7-56) units/L Alkaline Phosphatase 87 (35-129) units/L Total Protein 6.9 (6.3-8.2) g/dL Albumin 4.0 (3.9-5) g/dL EKG interpretations - Telemetry EKG Rhythm: Atrial Fibrillation Assessment and Plan - Patient Problems (1) Nonischemic cardiomyopathy Current Visit: Yes Status: Acute Plan to address problem: The patient has a history of stable, dilated nonischemic cardiomyopathy with indwelling cardiac defibrillator, on guideline directed medical therapy. His primary cardiac issues at this point his noncompliance with his medications, and his continued alcohol abuse. 1. We will resume therapy with lisinopril, substitute beta-randa with carvedilol, furosemide and substitute potassium with spironolactone. 2. The patient should have nephrology social worker intervention, for alcohol counseling as indicated. 3. No additional benefit to further ischemic cardiac testing in the absence of cardiac symptoms. 4. Outpatient cardiac follow-up for ICD interrogation and monitoring. (2) Chronic atrial fibrillation Current Visit: Yes Status: Acute Plan to address problem: Atrial fibrillation rate is optimally controlled at this time, we will add carvedilol to his regimen. We will resume Eliquis 5 mg twice daily for future CVA prophylaxis.
[2019-12-25] MEDS ORDERED: APIXABAN 5 MG TAB PO SCH (13:00)
--- NOTE | 2019-12-25 14:18 | Discharge Summary ---
Providers - Providers Date of Admission: 12/24/19 23:11 Date of discharge: 12/25/19 Attending physician: DAPHNE HINTON 12/24/19 Consult to Cardiac Rehabilitation [CONS] Routine Reason For Exam: Phase I 12/24/19 23:49 Consult to Cardiology [CONS] Routine Consulting Provider: SEVERINO JUAREZ Reason For Exam: chest pain Primary care physician: REWIND OPERATOR Hospitalization Reason for admission: cp Condition: Critical Hospital course: The patient is a 54-year-old man with a long cardiac history of a dilated nonischemic cardiomyopathy and chronic alcohol abuse. In 2012, he underwent placement of a single-chamber ICD at [facility]. He said at the time his left ventricular ejection fraction was 30%. Prior to the ICD implantation, a cardiac catheterization was done that showed no significant coronary artery disease. He also reports chronic atrial fibrillation, for which he is nominally on Eliquis prescribed by his [place] rib cloth knitter. In addition to Eliquis, he reports that he takes lisinopril, metoprolol, baby aspirin, amiodarone, furosemide and potassium. He does admit to poor compliance with his medications and his cardiology outpatient visits, his last ICD interrogation was 6 months ago. He presented to the hospital at this time reportedly for alcohol intoxication. In the emergency room, his alcohol level was 0.37. He reported to me CP, reproducible with palpation. There is no anginal type symptoms, no unusual shortness of breath, no palpitations, no ICD discharge, and no edema. EKG was atrial fibrillation with a well-controlled ventricular rate, nonspecific ST and T wave changes, no acute ischemia. Chest x-ray revealed mild cardiomegaly, clear lungs with no interstitial edema or heart failure, and a mild increase in the size of the cardiac silhouette. An echocardiogram done today demonstrated a four-chamber dilated cardiomyopathy, with left ventricular ejection fraction about 25 to 30%. Otherwise, no significant valvular lesions. He was ordered for a Lexiscan stress test by the medical service, but the patient refused per Cardiology reports. Cardiology al so saw the patient consultation.Cardiology felt the patient could discharge home with Slight adjustment in medications. Dedicated discharge time 35 minutes Disposition: [id number] TO HOME OR SELFCARE Time spent for discharge: 35 - Discharge Diagnoses (1) Costochondritis Status: Acute (2) Acute alcohol intoxication Status: Acute Qualifiers: Complication of substance-induced condition: uncomplicated Qualified Co de(s): F10.920 - Alcohol use, unspecified with intoxication, uncomplicated (3) Chest pain Status: Acute Qualifiers: Chest pain type: unspecified Qualified Code(s): R07.9 - Chest pain, unspecified (4) Chronic atrial fibrillation Status: Acute (5) Cocaine abuse Status: Acute Core Measure Documentation - Palliative Care Palliative Care/ Comfort Measures: Not Applicable - Core Measures Any of the following diagnoses?: none Exam - Constitutional Vitals: Temp Pulse Resp BP Pulse Ox 98.5 F 73 20 116/85 99 12/25/19 11:15 12/25/19 11:15 12/25/19 11:15 12/25/19 11:15 12/25/19 11:15 General appearance: Present: no acute distress, well-nourished - EENT Eyes: Present: PERRL ENT: hearing intact, clear oral mucosa - Neck Neck: Present: supple, normal ROM - Respiratory Respiratory effort: normal Respiratory: bilateral: CTA - Cardiovascular Heart Sounds: Present: S1 & S2. Absent: rub, click - Extremities Extremities: pulses symmetrical, No edema Peripheral Pulses: within normal limits - Abdominal General gastrointestinal: Present: soft, non-tender, non-distended, normal bowel sounds Male genitourinary: Present: normal - Integumentary Integumentary: Present: clear, warm, dry - Musculoskeletal Musculoskeletal: gait normal, strength equal bilaterally - Psychiatric Psychiatric: appropriate mood/affect, intact judgment & insight - Neurologic Neurologic: CNII-XII intact, moves all extremities Plan Activity: advance as tolerated Weight Bearing Status: Weight Bear as Tolerated Diet: low fat, low cholesterol, low salt Follow up with: PRIMARY CARE, [Primary Care Provider] - 3-5 Days Prescriptions: carvediloL [Coreg] 3.125 mg PO BID #60 tablet
[2019-12-25 18:43] VITALS: BP 116/78
[2019-12-25] MEDS ORDERED: carvediloL 3.125 MG TAB PO SCH (22:00)
[2019-12-26] MEDS ORDERED: FUROSEMIDE 20 MG TAB PO SCH (10:00)
[2019-12-26] MEDS ORDERED: SPIRONOLACTONE 25 MG TAB PO SCH (10:00)
[2019-12-26] MEDS ORDERED: LISINOPRIL 5 MG TAB PO SCH (10:00)
[2019-12-26] MEDS ORDERED: ASPIRIN EC 81 MG TAB PO SCH (10:00)
== END 2019-12-25 17:30 | disposition home or self-care (01) ==
LOC: ED 20:28 → 4A 23:11
PROVIDERS: ADMIT Internal Medicine Geriatric Medicine; ATTEND Hospitalist
DX: M94.0 Chondrocostal junction syndrome [Tietze] (principal); I25.119 Atherosclerotic heart disease of native coronary artery with unspecified angina pectoris; I48.20 Chronic atrial fibrillation, unspecified; I25.2 Old myocardial infarction; I11.0 Hypertensive heart disease with heart failure; I50.9 Heart failure, unspecified; I42.8 Other cardiomyopathies; F14.10 Cocaine abuse, uncomplicated; J44.9 Chronic obstructive pulmonary disease, unspecified; Z95.810 Presence of automatic (implantable) cardiac defibrillator; F17.200 Nicotine dependence, unspecified, uncomplicated; F10.920 Alcohol use, unspecified with intoxication, uncomplicated; Z79.899 Other long term (current) drug therapy
CPT/HCPCS: 36415; 71045; 80048; 80053; 80307; 81001; 83735; 84100; 84484; 85025; 85610; 85730; 93005; 93306; 99291; G0378; J2785; 78452; 80320; A9502; G0480

== ENCOUNTER 2020-02-03 22:25 | Observation (INO) | payer MEDICARE ==
[2020-02-03] MEDS ORDERED: ASPIRIN 325 MG TAB PO ONE (22:50)
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
--- NOTE | 2020-02-03 23:45 | XRay Report ---
CHEST 1 VIEW 11:17 PM INDICATION / CLINICAL INFORMATION: Anterior chest wall pain. Shortness of breath. Atrial fibrillation. COMPARISON: 12/24/19. FINDINGS: SUPPORT DEVICES: There is a single-lead left subclavian ICD with the tip overlying the right ventricl e. HEART / MEDIASTINUM: The heart size and pulmonary vasculature are normal. The aorta is normal in narciso arnulfo. LUNGS / PLEURA: No significant pulmonary or pleural abnormality. No pneumothorax. ADDITIONAL FINDINGS: No acute osseous abnormality is seen. IMPRESSION: No acute abnormality or significant change. Signer Name: Vinnie Light MD Signed: 02/03/2020 11:41 PM Workstation Name: [id number]
[2020-02-03 23:59] LABS: Basophils % (Auto) 0.6 % (0.0-1.8); Eosinophils % (Auto) 0.7 % (0.0-4.3); Hemoglobin 14.4 gm/dl (11.8-15.2); Lymphocytes # (Auto) 1.5 K/mm3 (1.2-5.4); Mean Corpuscular HGB Conc 33 % (32-34); Mean Corpuscular Volume 90 fl (84-94); Monocytes # (Auto) 0.4 K/mm3 (0.0-0.8); Monocytes % (Auto) 10.7 % (0.0-7.3); Platelet Count 125 K/mm3 (140-440); Red Blood Count 4.77 M/mm3 (3.65-5.03)
[2020-02-04 00:19] LABS: Creatine Kinase MB 5.7 ng/mL (0.0-4.0)
[2020-02-04 00:22] LABS: BUN/Creatinine Ratio 20; Blood Urea Nitrogen 14 mg/dL (9-20); Calcium 7.8 mg/dL (8.4-10.2); Hemolysis Index 51
[2020-02-04] MEDS ORDERED: LORazepam 2 MG/ML VIAL IV PRN (01:08)
[2020-02-04] MEDS ORDERED: NITROGLYCERIN 0.4 MG TAB SUBL SL PRN (01:57)
[2020-02-04] MEDS ORDERED: MAGNESIUM HYDROXIDE (MOM) ORAL LIQD UDC PO PRN (01:57)
[2020-02-04] MEDS ORDERED: MORPHINE 2 MG/1 ML INJ IV PRN (01:57)
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
[2020-02-04] MEDS ORDERED: HEPARIN 5,000 UNIT/1 ML VIAL SUB-Q SCH (06:00)
[2020-02-04 06:33] LABS: Basophils % (Auto) 0.6 % (0.0-1.8); Eosinophils # (Auto) 0.1 K/mm3 (0.0-0.4); Eosinophils % (Auto) 1.3 % (0.0-4.3); Hematocrit 43.9 % (35.5-45.6); Hemoglobin 14.7 gm/dl (11.8-15.2); Lymphocytes # (Auto) 1.6 K/mm3 (1.2-5.4); Lymphocytes % (Auto) 37.4 % (13.4-35.0); Mean Corpuscular HGB Conc 33 % (32-34); Mean Corpuscular Volume 92 fl (84-94); Monocytes # (Auto) 0.3 K/mm3 (0.0-0.8); Platelet Count 117 K/mm3 (140-440); Red Blood Count 4.79 M/mm3 (3.65-5.03)
[2020-02-04] MEDS ORDERED: HEPARIN 5,000 UNIT/1 ML VIAL ONE (06:34)
[2020-02-04 06:51] LABS: BUN/Creatinine Ratio 22; Blood Urea Nitrogen 13 mg/dL (9-20); Calcium 7.8 mg/dL (8.4-10.2); Chol/HDL Ratio 1.51 %; HDL Cholesterol 107 mg/dL (40-59); Hemolysis Index 47; LDL Cholesterol,Direct 57 mg/dL (50-130)
[2020-02-04] MEDS: LORazepam 2 MG/ML VIAL IV PRN ×5 (09:28→21:40)
[2020-02-04] MEDS: ONDANSETRON 4 MG/2 ML INJ IV PRN (09:28)
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
[2020-02-04] MEDS: SPIRONOLACTONE 25 MG TAB PO SCH (11:14)
[2020-02-04] MEDS: FUROSEMIDE 20 MG TAB PO SCH (11:14)
[2020-02-04] MEDS ORDERED: carvediloL 3.125 MG TAB PO SCH ×2 (12:00→13:17)
--- NOTE | 2020-02-04 12:30 | Progress Note ---
Assessment and Plan Assessment and plan: Chronic A. fib with RVR. Continue Cardizem drip per cardiology recommendations Chest pain. Cardiology feels chest pain is atypical. Continue conservative management. EtOH withdrawal. Continue CIWA protocol. Nonischemic cardiomyopathy. Conservative management. Presence of cardiac defibrillator. Medical noncompliance. History Interval history: Patient currently tachycardic with heart rate in 140s. CIWA score 24. Hospitalist Physical - Constitutional Vitals: Temp Pulse Resp BP Pulse Ox 97.7 F 116 H 20 142/82 97 02/04/20 07:55 02/04/20 08:37 02/04/20 07:55 02/04/20 07:55 02/04/20 07:55 General appearance: Present: no acute distress - EENT Eyes: Present: PERRL, EOM intact ENT: hearing intact, clear oral mucosa, dentition normal - Neck Neck: Present: supple, normal ROM - Respiratory Respiratory effort: normal Respiratory: bilateral: CTA - Cardiovascular Rhythm: regular Heart Sounds: Present: S1 & S2. Absent: gallop, rub - Extremities Extremities: no ischemia, No edema, Full ROM - Abdominal General gastrointestinal: soft, non-tender, non-distended, normal bowel sounds - Integumentary Integumentary: Present: clear, warm, dry - Neurologic Neurologic: CNII-XII intact, moves all extremities HEART Score - HEART Score Troponin: Troponin T < 0.010 ng/mL (0.00-0.029) 02/04/20 09:55 Results - Labs CBC & Chem 7: 02/04/20 05:42 02/04/20 05:42 Labs: Laboratory Last Values WBC 4.2 K/mm3 (4.5-11.0) L 02/04/20 05:42 RBC 4.79 M/mm3 (3.65-5.03) 02/04/20 05:42 Hgb 14.7 gm/dl (11.8-15.2) 02/04/20 05:42 Hct 43.9 % (35.5-45.6) 02/04/20 05:42 MCV 92 fl (84-94) 02/04/20 05:42 MCH 31 pg (28-32) 02/04/20 05:42 MCHC 33 % (32-34) 02/04/20 05:42 RDW 17.0 % (13.2-15.2) H 02/04/20 05:42 Plt Count 117 K/mm3 (140-440) L 02/04/20 05:42 Lymph % (Auto) 37.4 % (13.4-35.0) H 02/04/20 05:42 [place] % (Auto) 8.0 % (0.0-7.3) H 02/04/20 05:42 Eos % (Auto) 1.3 % (0.0-4.3) 02/04/20 05:42 Baso % (Auto) 0.6 % (0.0-1.8) 02/04/20 05:42 Lymph # 1.6 K/mm3 (1.2-5.4) 02/04/20 05:42 [place] # 0.3 K/mm3 (0.0-0.8) 02/04/20 05:42 Eos # 0.1 K/mm3 (0.0-0.4) 02/04/20 05:42 Baso # 0.0 K/mm3 (0.0-0.1) 02/04/20 05:42 Seg Neutrophils % 52.7 % (40.0-70.0) 02/04/20 05:42 Seg Neutrophils # 2.2 K/mm3 (1.8-7.7) 02/04/20 05:42 Sodium 142 mmol/L (137-145) 02/04/20 05:42 Potassium 4.2 mmol/L (3.6-5.0) 02/04/20 05:42 Chloride 103.8 mmol/L (98-107) 02/04/20 05:42 Carbon Dioxide 20 mmol/L (22-30) L 02/04/20 05:42 Anion Gap 22 mmol/L 02/04/20 05:42 BUN 13 mg/dL (9-20) 02/04/20 05:42 Creatinine 0.6 mg/dL (0.8-1.5) L 02/04/20 05:42 Estimated GFR > 60 ml/min 02/04/20 05:42 BUN/Creatinine Ratio 22 % 02/04/20 05:42 Glucose 72 mg/dL (75-100) L 02/04/20 05:42 Calcium 7.8 mg/dL (8.4-10.2) L 02/04/20 05:42 Total Creatine Kinase 433 units/L (55-170) H 02/03/20 23:08 CK-MB (CK-2) 5.7 ng/mL (0.0-4.0) H 02/03/20 23:08 CK-MB (CK-2) Rel Index 1.3 (0-4) 02/03/20 23:08 Troponin T < 0.010 ng/mL (0.00-0.029) 02/04/20 09:55 Triglycerides 53 mg/dL (2-149) 02/04/20 05:42 Cholesterol 162 mg/dL (50-199) 02/04/20 05:42 LDL Cholesterol Direct 57 mg/dL (50-130) 02/04/20 05:42 HDL Cholesterol 107 mg/dL (40-59) H 02/04/20 05:42 Cholesterol/HDL Ratio 1.51 % 02/04/20 05:42 Plasma/Serum Alcohol 0.41 % (0-0.07) H 02/03/20 23:08 Vergara/IV: Voiding Method Urinal IV Catheter Type [Right INT / Saline Lock Forearm] Active Medications - Current Medications Current Medications: Generic Name Dose Route Start Last Admin Trade Name Freq PRN Reason Stop Dose Admin Acetaminophen 650 mg 02/04/20 01:57 Tylenol PO Q4H PRN Pain MILD(1-3)/Fever >100.5/CASTANO Apixaban 5 mg 02/04/20 22:00 Eliquis PO Q12HR [facility] Protocol Aspirin 81 mg 02/05/20 10:00 Baby Aspirin PO QDAY [facility] Carvedilol 3.125 mg 02/04/20 12:00 Coreg PO BID DI Furosemide 20 mg 02/04/20 12:00 02/04/20 11:14 Lasix PO 20 mg QDAY DI Administration Lorazepam 2 mg 02/04/20 01:08 02/04/20 10:57 Ativan IV 2 mg Q1HR PRN Administration CIWA-Ar 8-15 Lorazepam 4 mg 02/04/20 01:08 Ativan IV Q1HR PRN CIWA-Ar 16-25 Lorazepam 4 mg 02/04/20 01:08 Ativan IV Q15MIN PRN CIWA-Ar >25 Magnesium Hydroxide 30 ml 02/04/20 01:57 Milk Of Magnesia PO Q4H PRN Constipation Morphine Sulfate 2 mg 02/04/20 01:57 Morphine IV Q5MIN PRN Chest Pain unrelieved by NTG Nitroglycerin 0.4 mg 02/04/20 01:57 Nitrostat SL Q5M PRN Chest Pain Ondansetron HCl 4 mg 02/04/20 01:57 02/04/20 09:28 Zofran IV 4 mg Q8H PRN Administration Nausea And Vomiting Sodium Chloride 10 ml 02/04/20 10:00 02/04/20 11:14 Sodium Chloride Flush Syringe 10 Ml IV 10 ml BID DI Administration Sodium Chloride 10 ml 02/04/20 01:57 Sodium Chloride Flush Syringe 10 Ml IV PRN PRN LINE FLUSH Spironolactone 25 mg 02/04/20 11:00 02/04/20 11:14 Aldactone PO 25 mg QDAY DI Administration
[2020-02-04] MEDS ORDERED: dilTIAZem 25 MG/5 ML INJ IV ONE (13:02)
[2020-02-04] MEDS ORDERED: dilTIAZem/D5W 100 MG/100 ML BAG IV SCH (14:00)
[2020-02-04] MEDS ORDERED: carvediloL 3.125 MG TAB PO ONE (14:00)
[2020-02-04] MEDS: LISINOPRIL 5 MG TAB PO SCH (14:51)
[2020-02-04] MEDS: ACETAMINOPHEN 325 MG TAB PO PRN (14:51)
[2020-02-04] MEDS: carvediloL 6.25 MG TAB PO SCH (21:39)
[2020-02-04] MEDS: APIXABAN 5 MG TAB PO SCH (21:39)
[2020-02-05 07:06] LABS: Basophils % (Auto) 0.5 % (0.0-1.8); Eosinophils # (Auto) 0.1 K/mm3 (0.0-0.4); Hematocrit 40.8 % (35.5-45.6); Hemoglobin 13.5 gm/dl (11.8-15.2); Lymphocytes # (Auto) 0.7 K/mm3 (1.2-5.4); Lymphocytes % (Auto) 23.6 % (13.4-35.0); Mean Corpuscular HGB Conc 33 % (32-34); Mean Corpuscular Volume 91 fl (84-94); Monocytes # (Auto) 0.3 K/mm3 (0.0-0.8); Monocytes % (Auto) 9.1 % (0.0-7.3); Red Blood Count 4.47 M/mm3 (3.65-5.03); Red Cell Distribution Width 16.5 % (13.2-15.2)
[2020-02-05 07:19] LABS: INR 1.14 (0.87-1.13)
[2020-02-05 07:21] LABS: BUN/Creatinine Ratio 28; Blood Urea Nitrogen 14 mg/dL (9-20); Hemolysis Index 25
[2020-02-05 07:37] LABS: Platelet Count 69 K/mm3 (140-440)
[2020-02-05] MEDS: ONDANSETRON 4 MG/2 ML INJ IV PRN (08:04)
[2020-02-05] MEDS: LORazepam 2 MG/ML VIAL IV PRN ×4 (08:04→21:04)
[2020-02-05] MEDS: ASPIRIN 81 MG TAB CHEW PO SCH (09:41)
[2020-02-05] MEDS: LISINOPRIL 5 MG TAB PO SCH (09:41)
[2020-02-05] MEDS: APIXABAN 5 MG TAB PO SCH ×2 (09:42→21:04)
[2020-02-05] MEDS: FUROSEMIDE 20 MG TAB PO SCH (09:42)
[2020-02-05] MEDS: carvediloL 6.25 MG TAB PO SCH ×2 (09:42→21:04)
[2020-02-05] MEDS: SPIRONOLACTONE 25 MG TAB PO SCH (09:42)
[2020-02-05] MEDS ORDERED: ASPIRIN EC 325 MG TAB PO SCH (10:00)
--- NOTE | 2020-02-05 12:16 | Progress Note ---
Assessment and Plan Chest pain, atypical Alcohol intoxication with withdrawal Hx of Nonischemic cardiomyopathy Presence of cardiac defibrillator Chronic Afib on Eliquis as an outpatient Noncompliance with medications Echo done 12/2019 showed a four-chamber dilated cardiomyopathy, with left ventricular ejection fraction 25-30%. Otherwise, no significant valvular lesions. Continue medical therapy for nonischemic cardiomyopathy and chronic atrial fibrillation. Subjective Date of service: 02/05/20 Interval history: Patient transferred to [facility] for rapid atrial fibrillation. Telemetry shows atrial fibrillation with a well controlled ventricular rate. Objective Vital Signs Temp Pulse Pulse Resp BP Pulse Ox 02/05/20 11:10 147 H 128/96 02/05/20 11:00 110 H 128/96 98 02/05/20 10:50 89 128/96 96 02/05/20 10:40 87 128/96 96 02/05/20 10:30 96 H 128/96 96 02/05/20 10:20 92 H 128/96 96 02/05/20 10:10 96 H 128/96 96 02/05/20 10:00 101 H 140/96 97 02/05/20 09:50 107 H 140/96 97 02/05/20 09:42 110 H 140/96 02/05/20 09:41 104 H 140/96 02/05/20 09:40 103 H 140/96 96 02/05/20 09:30 81 140/96 96 02/05/20 09:20 84 140/96 93 02/05/20 09:10 103 H 140/96 100 02/05/20 09:00 84 140/96 98 02/05/20 08:50 89 134/86 98 02/05/20 08:40 85 134/86 97 02/05/20 08:30 92 H 134/86 93 02/05/20 08:20 86 134/86 94 02/05/20 08:10 96 H 134/86 94 02/05/20 08:00 98.1 F 89 16 104/59 93 02/05/20 07:50 88 17 104/59 98 02/05/20 07:40 85 14 104/59 97 02/05/20 07:30 96 H 14 132/83 95 02/05/20 07:20 84 16 132/83 94 02/05/20 07:10 90 13 132/83 93 02/05/20 07:00 83 14 104/59 97 02/05/20 06:50 84 15 104/59 96 02/05/20 06:40 89 11 L 104/59 94 02/05/20 06:30 90 15 104/59 96 02/05/20 06:20 90 18 104/59 92 02/05/20 06:10 92 H 15 104/59 02/05/20 06:00 21 93/62 02/05/20 05:50 96 H 18 93/62 02/05/20 05:40 93 H 20 93/62 02/05/20 05:30 16 93/62 02/05/20 05:20 99 H 11 L 93/62 02/05/20 05:10 96 H 13 93/62 02/05/20 05:00 86 16 93/62 02/05/20 04:50 97 H 16 103/72 02/05/20 04:40 90 17 103/72 91 02/05/20 04:30 98 H 16 103/72 93 02/05/20 04:20 98 H 18 103/72 94 02/05/20 04:10 87 18 103/72 93 02/05/20 04:00 98.6 F 95 H 16 89/51 94 02/05/20 03:50 95 H 32 H 89/51 95 02/05/20 03:40 81 16 89/51 93 02/05/20 03:30 83 17 89/51 97 02/05/20 03:20 86 15 89/51 96 02/05/20 03:10 95 H 19 89/51 92 02/05/20 03:00 92 H 17 89/51 95 02/05/20 02:50 94 H 18 104/65 93 02/05/20 02:40 94 H 18 104/65 96 02/05/20 02:30 90 18 104/65 92 02/05/20 02:20 95 H 17 104/65 94 02/05/20 02:10 96 H 17 104/65 94 02/05/20 02:00 86 17 104/65 95 02/05/20 01:50 92 H 17 97/70 95 02/05/20 01:40 97 H 17 97/70 94 02/05/20 01:30 97 H 16 97/70 85 02/05/20 01:20 99 H 18 97/70 93 02/05/20 01:10 102 H 17 82/58 94 02/05/20 01:00 93 H 16 82/58 94 02/05/20 00:50 95 H 17 97/56 94 02/05/20 00:40 106 H 18 97/56 94 02/05/20 00:30 97 H 17 97/56 93 02/05/20 00:20 90 17 97/56 90 02/05/20 00:10 90 18 97/56 90 02/05/20 00:00 97.9 F 102 H 20 113/87 90 02/04/20 23:50 102 H 17 113/87 94 02/04/20 23:40 101 H 20 113/87 90 02/04/20 23:30 98 H 24 113/87 94 02/04/20 23:20 89 20 113/87 95 02/04/20 23:10 99 H 24 113/87 94 02/04/20 23:00 116 H 13 119/80 95 02/04/20 22:50 108 H 17 119/80 95 02/04/20 22:40 108 H 21 119/80 99 02/04/20 22:30 112 H 17 119/80 97 02/04/20 22:20 111 H 18 119/80 93 02/04/20 22:10 131 H 17 119/80 02/04/20 22:00 107 H 98 H 19 119/80 98 02/04/20 21:50 113 H 19 131/74 02/04/20 21:40 119 H 22 131/74 02/04/20 21:39 109 H 131/74 02/04/20 21:30 100 H 20 131/74 02/04/20 21:20 100 H 21 131/74 02/04/20 21:10 99 H 21 131/74 95 02/04/20 21:00 100 H 21 131/74 95 02/04/20 20:50 96 H 20 125/83 94 02/04/20 20:40 102 H 12 125/83 02/04/20 20:30 103 H 20 125/83 02/04/20 20:20 102 H 20 125/83 02/04/20 20:10 96 H 20 125/83 02/04/20 20:00 98.4 F 99 H 20 125/83 94 02/04/20 19:50 109 H 22 114/79 93 02/04/20 19:40 109 H 20 114/79 95 02/04/20 19:20 93 H 20 114/79 94 02/04/20 19:10 97 H 19 114/79 92 02/04/20 19:00 101 H 21 112/73 93 02/04/20 18:50 97 H 12 114/79 95 02/04/20 18:40 108 H 21 114/79 94 02/04/20 18:38 104 H 114/79 02/04/20 18:00 114/79 02/04/20 17:50 105 H 114/72 02/04/20 17:40 98 H 20 114/72 99 02/04/20 17:30 90 20 114/72 96 02/04/20 17:20 113 H 21 114/72 98 02/04/20 17:10 100 H 21 02/04/20 17:00 91 H 20 02/04/20 16:50 95 H 20 02/04/20 16:40 98 H 21 02/04/20 16:39 100 H 20 02/04/20 16:00 98.5 F 116 H 02/04/20 14:55 77 112/80 94 02/04/20 14:51 143 H 111/78 02/04/20 13:54 140 H 111/78 02/04/20 13:26 117 H 91 02/04/20 13:23 141 H 114/68 92 02/04/20 13:16 145 H 124/85 02/04/20 13:07 98.5 F 79 18 124/85 95 02/04/20 12:53 140 H 137/93 - Physical Examination General: No Apparent Distress HEENT: Positive: PERRL Cardiac: Positive: irregularly irregular Neuro: Positive: Grossly Intact Extremities: Absent: edema - Labs and Meds Coagulation 02/05/20 Range/Units 05:25 PT 14.4 (12.2-14.9) Sec. INR 1.14 H (0.87-1.13) CBC 02/05/20 Range/Units 05:25 WBC 2.9 L (4.5-11.0) K/mm3 RBC 4.47 (3.65-5.03) M/mm3 Hgb 13.5 (11.8-15.2) gm/dl Hct 40.8 (35.5-45.6) % Plt Count 69 L (140-440) K/mm3 Lymph # 0.7 L (1.2-5.4) K/mm3 [place] # 0.3 (0.0-0.8) K/mm3 Eos # 0.1 (0.0-0.4) K/mm3 Baso # 0.0 (0.0-0.1) K/mm3 Comprehensive Metabolic Panel 02/05/20 Range/Units 05:25 Sodium 133 L D (137-145) mmol/L Potassium 3.8 (3.6-5.0) mmol/L Chloride 99.1 (98-107) mmol/L Carbon Dioxide 24 (22-30) mmol/L BUN 14 (9-20) mg/dL Creatinine 0.5 L (0.8-1.5) mg/dL Glucose 101 H (75-100) mg/dL Calcium 8.0 L (8.4-10.2) mg/dL
[2020-02-05] MEDS: ACETAMINOPHEN 325 MG TAB PO PRN ×2 (13:02→21:04)
--- NOTE | 2020-02-05 13:11 | Progress Note ---
Assessment and Plan Assessment and plan: Chronic A. fib with RVR. Continue Cardizem drip per cardiology recommendations Chest pain. Cardiology feels chest pain is atypical. Continue conservative management. EtOH withdrawal. Continue CIWA protocol. Nonischemic cardiomyopathy. Conservative management. Presence of cardiac defibrillator. Medical noncompliance. 02/05/2020. Rate is controlled with Coreg. Continue CIWA protocol. Consider transfer to the floor. History Interval history: Patient much better today. CIWA score is 4. Heart rate stable in the 90s. Hospitalist Physical - Constitutional Vitals: Temp Pulse Resp BP Pulse Ox 98.1 F 99 H 19 142/107 96 02/05/20 08:00 02/05/20 12:20 02/05/20 13:02 02/05/20 12:20 02/05/20 12:10 General appearance: Present: no acute distress - EENT Eyes: Present: PERRL, EOM intact ENT: hearing intact, clear oral mucosa, dentition normal - Neck Neck: Present: supple, normal ROM - Respiratory Respiratory effort: normal Respiratory: bilateral: CTA - Cardiovascular Rhythm: regular Heart Sounds: Present: S1 & S2. Absent: gallop, rub - Extremities Extremities: no ischemia, No edema, Full ROM - Abdominal General gastrointestinal: soft, non-tender, non-distended, normal bowel sounds - Integumentary Integumentary: Present: clear, warm, dry - Neurologic Neurologic: CNII-XII intact, moves all extremities HEART Score - HEART Score Troponin: Troponin T < 0.010 ng/mL (0.00-0.029) 02/04/20 09:55 Results - Labs CBC & Chem 7: 02/05/20 05:25 02/05/20 05:25 Labs: Laboratory Last Values WBC 2.9 K/mm3 (4.5-11.0) L 02/05/20 05:25 RBC 4.47 M/mm3 (3.65-5.03) 02/05/20 05:25 Hgb 13.5 gm/dl (11.8-15.2) 02/05/20 05:25 Hct 40.8 % (35.5-45.6) 02/05/20 05:25 MCV 91 fl (84-94) 02/05/20 05:25 MCH 30 pg (28-32) 02/05/20 05:25 MCHC 33 % (32-34) 02/05/20 05:25 RDW 16.5 % (13.2-15.2) H 02/05/20 05:25 Plt Count 69 K/mm3 (140-440) L 02/05/20 05:25 Lymph % (Auto) 23.6 % (13.4-35.0) 02/05/20 05:25 [place] % (Auto) 9.1 % (0.0-7.3) H 02/05/20 05:25 Eos % (Auto) 3.0 % (0.0-4.3) 02/05/20 05:25 Baso % (Auto) 0.5 % (0.0-1.8) 02/05/20 05:25 Lymph # 0.7 K/mm3 (1.2-5.4) L 02/05/20 05:25 [place] # 0.3 K/mm3 (0.0-0.8) 02/05/20 05:25 Eos # 0.1 K/mm3 (0.0-0.4) 02/05/20 05:25 Baso # 0.0 K/mm3 (0.0-0.1) 02/05/20 05:25 Seg Neutrophils % 63.8 % (40.0-70.0) 02/05/20 05:25 Seg Neutrophils # 1.9 K/mm3 (1.8-7.7) 02/05/20 05:25 PT 14.4 Sec. (12.2-14.9) 02/05/20 05:25 INR 1.14 (0.87-1.13) H 02/05/20 05:25 Sodium 133 mmol/L (137-145) L D 02/05/20 05:25 Potassium 3.8 mmol/L (3.6-5.0) 02/05/20 05:25 Chloride 99.1 mmol/L (98-107) 02/05/20 05:25 Carbon Dioxide 24 mmol/L (22-30) 02/05/20 05:25 Anion Gap 14 mmol/L 02/05/20 05:25 BUN 14 mg/dL (9-20) 02/05/20 05:25 Creatinine 0.5 mg/dL (0.8-1.5) L 02/05/20 05:25 Estimated GFR > 60 ml/min 02/05/20 05:25 BUN/Creatinine Ratio 28 % 02/05/20 05:25 Glucose 101 mg/dL (75-100) H 02/05/20 05:25 Calcium 8.0 mg/dL (8.4-10.2) L 02/05/20 05:25 Total Creatine Kinase 433 units/L (55-170) H 02/03/20 23:08 CK-MB (CK-2) 5.7 ng/mL (0.0-4.0) H 02/03/20 23:08 CK-MB (CK-2) Rel Index 1.3 (0-4) 02/03/20 23:08 Troponin T < 0.010 ng/mL (0.00-0.029) 02/04/20 09:55 Triglycerides 53 mg/dL (2-149) 02/04/20 05:42 Cholesterol 162 mg/dL (50-199) 02/04/20 05:42 LDL Cholesterol Direct 57 mg/dL (50-130) 02/04/20 05:42 HDL Cholesterol 107 mg/dL (40-59) H 02/04/20 05:42 Cholesterol/HDL Ratio 1.51 % 02/04/20 05:42 Nasal Screen MRSA (PCR) Negative (Negative) 02/04/20 08:46 Plasma/Serum Alcohol 0.41 % (0-0.07) H 02/03/20 23:08 Vergara/IV: Voiding Method Urinal IV Catheter Type [Right INT / Saline Lock Forearm] Active Medications - Current Medications Current Medications: Generic Name Dose Route Start Last Admin Trade Name Freq PRN Reason Stop Dose Admin Acetaminophen 650 mg 02/04/20 01:57 02/05/20 13:02 Tylenol PO 650 mg Q4H PRN Administration Pain MILD(1-3)/Fever >100.5/CASTANO Apixaban 5 mg 02/04/20 22:00 02/05/20 09:42 Eliquis PO 5 mg Q12HR DI Administration Protocol Aspirin 81 mg 02/05/20 10:00 02/05/20 09:41 Baby Aspirin PO 81 mg QDAY DI Administration Carvedilol 6.25 mg 02/04/20 22:00 02/05/20 09:42 Coreg PO 6.25 mg BID DI Administration Furosemide 20 mg 07/08/20 12:00 02/05/20 09:42 Lasix PO 20 mg QDAY DI Administration Diltiazem HCl 100 mg in 100 mls @ 5 mls/hr 02/04/20 14:00 Cardizem/D5w 100mg/100ml IV TITR DI Protocol 5 MG/HR Lisinopril 5 mg 02/04/20 14:00 02/05/20 09:41 Zestril PO 5 mg QDAY DI Administration Lorazepam 2 mg 02/04/20 01:08 02/05/20 13:03 Ativan IV 2 mg Q1HR PRN Administration CIWA-Ar 8-15 Lorazepam 4 mg 02/04/20 01:08 02/04/20 14:51 Ativan IV 4 mg Q1HR PRN Administration CIWA-Ar 16-25 Lorazepam 4 mg 02/04/20 01:08 Ativan IV Q15MIN PRN CIWA-Ar >25 Magnesium Hydroxide 30 ml 02/04/20 01:57 Milk Of Magnesia PO Q4H PRN Constipation Morphine Sulfate 2 mg 02/04/20 01:57 Morphine IV Q5MIN PRN Chest Pain unrelieved by NTG Nitroglycerin 0.4 mg 02/04/20 01:57 Nitrostat SL Q5M PRN Chest Pain Ondansetron HCl 4 mg 02/04/20 01:57 02/05/20 08:04 Zofran IV 4 mg Q8H PRN Administration Nausea And Vomiting Sodium Chloride 10 ml 02/04/20 10:00 02/05/20 09:43 Sodium Chloride Flush Syringe 10 Ml IV 10 ml BID DI Administration Sodium Chloride 10 ml 02/04/20 01:57 Sodium Chloride Flush Syringe 10 Ml IV PRN PRN LINE FLUSH Spironolactone 25 mg 02/04/20 11:00 02/05/20 09:42 Aldactone PO 25 mg QDAY DI Administration
[2020-02-06] MEDS: LORazepam 2 MG/ML VIAL IV PRN ×3 (03:14→21:45)
[2020-02-06] MEDS: ACETAMINOPHEN 325 MG TAB PO PRN (09:37)
[2020-02-06] MEDS: FUROSEMIDE 20 MG TAB PO SCH (09:38)
[2020-02-06] MEDS: LISINOPRIL 5 MG TAB PO SCH (09:38)
[2020-02-06] MEDS: carvediloL 6.25 MG TAB PO SCH (09:40)
[2020-02-06] MEDS: SPIRONOLACTONE 25 MG TAB PO SCH (09:41)
[2020-02-06] MEDS: APIXABAN 5 MG TAB PO SCH ×2 (09:41→21:44)
[2020-02-06] MEDS: ASPIRIN 81 MG TAB CHEW PO SCH (09:41)
--- NOTE | 2020-02-06 10:40 | Progress Note ---
Assessment and Plan Chest pain, atypical Alcohol intoxication with withdrawal Hx of Nonischemic cardiomyopathy Presence of cardiac defibrillator Chronic Afib on Eliquis as an outpatient Noncompliance with medications Echo done 12/2019 showed a four-chamber dilated cardiomyopathy, with left ventricular ejection fraction 25-30%. Otherwise, no significant valvular lesions. Continue medical therapy for nonischemic cardiomyopathy. Stop carvedilol and replace with metoprolol. In addition, will add digoxin for optimal rate control of chronic atrial fibrillation. Subjective Date of service: 02/06/20 Interval history: Nurse reports of rapid atrial fibrillation on exertion. Objective Vital Signs Temp Pulse Pulse Resp BP Pulse Ox 02/06/20 10:11 116 H 19 105/82 99 02/06/20 10:01 143 H 20 105/82 99 02/06/20 09:51 123 H 24 105/82 98 02/06/20 09:41 100 H 18 105/82 98 02/06/20 09:40 112 H 105/88 02/06/20 09:38 112 H 105/88 02/06/20 09:31 97 H 16 104/70 96 02/06/20 09:20 104 H 21 104/70 97 02/06/20 09:11 110 H 17 104/70 94 02/06/20 09:01 112 H 16 104/70 98 02/06/20 08:57 110 H 18 104/70 02/06/20 08:43 104/70 02/06/20 08:23 104/70 91 02/06/20 08:00 97.5 F L 106 H 108 H 18 104/70 98 02/06/20 07:54 119/83 91 02/06/20 07:31 119/83 94 02/06/20 07:20 119/83 84 02/06/20 07:17 119/83 93 02/06/20 06:44 119/83 02/06/20 06:30 119/83 93 02/06/20 06:20 119/83 93 02/06/20 06:18 119/83 92 02/06/20 06:01 91 H 15 119/83 02/06/20 05:51 85 15 119/83 02/06/20 05:41 107 H 17 119/83 97 02/06/20 05:31 90 16 119/83 02/06/20 05:21 84 17 119/83 45 L 02/06/20 05:11 84 14 119/83 02/06/20 05:01 92 H 16 119/83 02/06/20 04:51 85 15 119/83 02/06/20 04:41 90 16 119/83 02/06/20 04:31 88 17 119/83 98 02/06/20 04:21 87 17 119/83 95 02/06/20 04:11 89 17 119/83 96 02/06/20 04:00 97.6 F 86 87 17 119/83 96 02/06/20 03:51 90 18 117/84 97 02/06/20 03:41 92 H 13 117/84 96 02/06/20 03:31 92 H 20 117/84 96 02/06/20 03:21 109 H 22 118/73 97 02/06/20 03:11 111 H 17 118/73 02/06/20 03:01 111 H 17 118/73 97 02/06/20 02:51 97 H 21 118/73 94 02/06/20 02:41 91 H 19 118/73 90 02/06/20 02:31 97 H 13 118/73 98 02/06/20 02:21 92 H 14 118/73 98 02/06/20 02:11 99 H 17 118/73 95 02/06/20 02:01 81 18 118/73 98 02/06/20 01:51 76 18 118/73 97 02/06/20 01:41 86 19 118/73 99 02/06/20 01:31 89 19 118/73 96 02/06/20 01:21 88 19 118/73 97 02/06/20 01:11 97 H 23 118/73 95 02/06/20 01:01 93 H 19 118/73 98 02/06/20 00:51 104 H 19 118/73 98 02/06/20 00:41 102 H 18 118/73 94 02/06/20 00:31 95 H 14 118/73 97 02/06/20 00:21 118/73 96 02/06/20 00:11 118/73 96 02/06/20 00:01 118/73 02/06/20 00:00 98.3 F 105 H 105 H 18 96 02/05/20 23:51 115/103 94 02/05/20 23:41 115/103 94 02/05/20 23:31 115/103 92 02/05/20 23:21 115/103 94 02/05/20 23:11 115/103 94 02/05/20 23:01 115/103 94 02/05/20 22:51 115/103 92 02/05/20 22:41 115/103 95 02/05/20 22:31 101 H 11 L 115/103 95 02/05/20 22:21 86 20 115/103 95 02/05/20 22:11 91 H 15 115/103 98 02/05/20 22:01 96 H 17 115/103 95 02/05/20 21:59 105 H 02/05/20 21:51 93 H 20 115/103 97 02/05/20 21:41 96 H 22 115/103 98 02/05/20 21:31 98 H 21 115/103 98 02/05/20 21:25 98 H 23 115/103 98 02/05/20 21:21 105 H 21 115/103 97 02/05/20 21:11 120 H 25 H 121/94 95 02/05/20 21:00 101 H 19 121/94 97 02/05/20 20:51 106 H 20 124/86 97 02/05/20 20:41 102 H 20 124/86 97 02/05/20 20:31 108 H 22 124/86 96 02/05/20 20:21 104 H 20 124/86 97 02/05/20 20:11 106 H 14 124/86 98 02/05/20 20:01 118 H 20 124/86 97 02/05/20 20:00 98.5 F 02/05/20 19:51 107 H 16 121/96 96 02/05/20 19:41 112 H 16 121/96 97 02/05/20 19:31 115 H 15 121/96 98 02/05/20 19:21 103 H 17 121/96 97 02/05/20 19:11 109 H 18 121/96 96 02/05/20 19:01 110 H 22 121/96 93 02/05/20 18:51 118 H 20 83/64 97 02/05/20 18:41 113 H 18 83/64 97 02/05/20 18:31 116 H 23 83/64 96 02/05/20 18:21 106 H 21 83/64 95 02/05/20 18:11 111 H 20 83/64 95 02/05/20 18:01 129 H 21 83/64 95 02/05/20 17:51 111 H 23 93 02/05/20 17:40 102 H 20 96 02/05/20 17:30 110 H 13 119/72 96 02/05/20 17:20 119 H 18 119/72 02/05/20 17:10 114 H 16 119/72 02/05/20 17:00 113 H 14 119/72 100 02/05/20 16:50 108 H 19 119/72 98 02/05/20 16:40 107 H 23 119/72 02/05/20 16:30 101 H 18 119/72 97 02/05/20 16:20 98 H 18 119/72 98 02/05/20 16:10 100 H 18 119/72 97 02/05/20 16:00 98.3 F 93 H 100 H 18 112/64 97 02/05/20 15:50 95 H 20 112/64 95 02/05/20 15:40 93 H 20 112/64 97 02/05/20 15:30 94 H 13 112/64 99 02/05/20 15:20 97 H 19 112/64 96 02/05/20 15:10 99 H 21 112/64 96 02/05/20 15:00 94 H 20 112/56 96 02/05/20 14:50 96 H 20 112/56 95 02/05/20 14:40 117 H 17 112/56 81 L 02/05/20 14:30 94 H 17 112/56 98 02/05/20 14:20 96 H 20 112/56 97 02/05/20 14:10 109 H 25 H 112/56 96 02/05/20 14:00 93 H 20 151/100 96 02/05/20 13:50 103 H 20 151/100 98 02/05/20 13:40 89 18 151/100 96 02/05/20 13:30 96 H 21 151/100 98 02/05/20 13:20 90 20 151/100 97 02/05/20 13:10 109 H 19 151/100 96 02/05/20 13:02 19 02/05/20 13:00 98 H 22 142/107 96 02/05/20 12:50 97 H 20 142/107 96 02/05/20 12:40 109 H 15 142/107 99 02/05/20 12:30 107 H 142/107 99 02/05/20 12:20 99 H 142/107 02/05/20 12:10 99 H 142/107 96 02/05/20 12:00 98.1 F 99 H 142/107 95 02/05/20 11:50 97 H 128/96 02/05/20 11:40 90 128/96 02/05/20 11:30 108 H 128/96 02/05/20 11:20 102 H 128/96 02/05/20 11:10 147 H 128/96 02/05/20 11:00 110 H 128/96 98 02/05/20 10:50 89 128/96 96 02/05/20 10:40 87 128/96 96 - Physical Examination General: No Apparent Distress HEENT: Positive: PERRL Neck: Positive: trachea midline Cardiac: Positive: irregularly irregular Neuro: Positive: Grossly Intact Extremities: Absent: edema
--- NOTE | 2020-02-06 12:08 | Progress Note ---
Assessment and Plan Assessment and plan: Chronic A. fib with RVR. Continue Cardizem drip per cardiology recommendations Chest pain. Cardiology feels chest pain is atypical. Continue conservative management. EtOH withdrawal. Continue CIWA protocol. Nonischemic cardiomyopathy. Conservative management. Presence of cardiac defibrillator. Medical noncompliance. 02/05/2020. Rate is controlled with Coreg. Continue CIWA protocol. Consider transfer to the floor. 02/06/2020. Continue digoxin and metoprolol for rate control. Cardizem drip has been discontinued. We will transfer to telemetry floor. Continue Eliquis 5 mg p.o. twice daily. CIWA protocol. History Interval history: Patient much better today. CIWA score is 11 Hospitalist Physical - Constitutional Vitals: Temp Pulse Resp BP Pulse Ox 97.5 F L 120 H 12 105/82 98 02/06/20 08:00 02/06/20 10:21 02/06/20 10:21 02/06/20 10:31 02/06/20 10:31 General appearance: Present: no acute distress - EENT Eyes: Present: PERRL, EOM intact ENT: hearing intact, clear oral mucosa, dentition normal - Neck Neck: Present: supple, normal ROM - Respiratory Respiratory effort: normal Respiratory: bilateral: CTA - Cardiovascular Rhythm: regular Heart Sounds: Present: S1 & S2. Absent: gallop, rub - Extremities Extremities: no ischemia, No edema, Full ROM - Abdominal General gastrointestinal: soft, non-tender, non-distended, normal bowel sounds - Integumentary Integumentary: Present: clear, warm, dry - Neurologic Neurologic: CNII-XII intact, moves all extremities HEART Score - HEART Score Troponin: Troponin T < 0.010 ng/mL (0.00-0.029) 02/04/20 09:55 Results - Labs CBC & Chem 7: 02/05/20 05:25 02/05/20 05:25 Labs: Laboratory Last Values WBC 2.9 K/mm3 (4.5-11.0) L 02/05/20 05:25 RBC 4.47 M/mm3 (3.65-5.03) 02/05/20 05:25 Hgb 13.5 gm/dl (11.8-15.2) 02/05/20 05:25 Hct 40.8 % (35.5-45.6) 02/05/20 05:25 MCV 91 fl (84-94) 02/05/20 05:25 MCH 30 pg (28-32) 02/05/20 05:25 MCHC 33 % (32-34) 02/05/20 05:25 RDW 16.5 % (13.2-15.2) H 02/05/20 05:25 Plt Count 69 K/mm3 (140-440) L 02/05/20 05:25 Lymph % (Auto) 23.6 % (13.4-35.0) 02/05/20 05:25 [place] % (Auto) 9.1 % (0.0-7.3) H 02/05/20 05:25 Eos % (Auto) 3.0 % (0.0-4.3) 02/05/20 05:25 Baso % (Auto) 0.5 % (0.0-1.8) 02/05/20 05:25 Lymph # 0.7 K/mm3 (1.2-5.4) L 02/05/20 05:25 [place] # 0.3 K/mm3 (0.0-0.8) 02/05/20 05:25 Eos # 0.1 K/mm3 (0.0-0.4) 02/05/20 05:25 Baso # 0.0 K/mm3 (0.0-0.1) 02/05/20 05:25 Seg Neutrophils % 63.8 % (40.0-70.0) 02/05/20 05:25 Seg Neutrophils # 1.9 K/mm3 (1.8-7.7) 02/05/20 05:25 PT 14.4 Sec. (12.2-14.9) 02/05/20 05:25 INR 1.14 (0.87-1.13) H 02/05/20 05:25 Sodium 133 mmol/L (137-145) L D 02/05/20 05:25 Potassium 3.8 mmol/L (3.6-5.0) 02/05/20 05:25 Chloride 99.1 mmol/L (98-107) 02/05/20 05:25 Carbon Dioxide 24 mmol/L (22-30) 02/05/20 05:25 Anion Gap 14 mmol/L 02/05/20 05:25 BUN 14 mg/dL (9-20) 02/05/20 05:25 Creatinine 0.5 mg/dL (0.8-1.5) L 02/05/20 05:25 Estimated GFR > 60 ml/min 02/05/20 05:25 BUN/Creatinine Ratio 28 % 02/05/20 05:25 Glucose 101 mg/dL (75-100) H 02/05/20 05:25 Calcium 8.0 mg/dL (8.4-10.2) L 02/05/20 05:25 Total Creatine Kinase 433 units/L (55-170) H 02/03/20 23:08 CK-MB (CK-2) 5.7 ng/mL (0.0-4.0) H 02/03/20 23:08 CK-MB (CK-2) Rel Index 1.3 (0-4) 02/03/20 23:08 Troponin T < 0.010 ng/mL (0.00-0.029) 02/04/20 09:55 Triglycerides 53 mg/dL (2-149) 02/04/20 05:42 Cholesterol 162 mg/dL (50-199) 02/04/20 05:42 LDL Cholesterol Direct 57 mg/dL (50-130) 02/04/20 05:42 HDL Cholesterol 107 mg/dL (40-59) H 02/04/20 05:42 Cholesterol/HDL Ratio 1.51 % 02/04/20 05:42 Nasal Screen MRSA (PCR) Negative (Negative) 02/04/20 08:46 Plasma/Serum Alcohol 0.41 % (0-0.07) H 02/03/20 23:08 [place]/IV: Voiding Method Toilet IV Catheter Type [Left Leg] Peripheral IV IV Catheter Type [Left Peripheral IV Antecubital] IV Catheter Type [Right INT / Saline Lock Forearm] Active Medications - Current Medications Current Medications: Generic Name Dose Route Start Last Admin Trade Name Freq PRN Reason Stop Dose Admin Acetaminophen 650 mg 02/04/20 01:57 02/06/20 09:37 Tylenol PO 650 mg Q4H PRN Administration Pain MILD(1-3)/Fever >100.5/CASTANO Apixaban 5 mg 02/04/20 22:00 02/06/20 09:41 Eliquis PO 5 mg Q12HR DI Administration Protocol Aspirin 81 mg 02/05/20 10:00 02/06/20 09:41 Baby Aspirin PO 81 mg QDAY DI Administration Digoxin 0.25 mg 02/06/20 12:00 Lanoxin IV 02/06/20 18:01 Q6HR DI Digoxin 0.25 mg 02/07/20 17:00 Lanoxin PO DAILY@1700 DI Furosemide 20 mg 02/04/20 12:00 02/06/20 09:38 Lasix PO 20 mg QDAY DI Administration Diltiazem HCl 100 mg in 100 mls @ 5 mls/hr 02/04/20 14:00 Cardizem/D5w 100mg/100ml IV TITR DI Protocol 5 MG/HR Lisinopril 5 mg 02/04/20 14:00 02/06/20 09:38 Zestril PO 5 mg QDAY DI Administration Lorazepam 2 mg 02/04/20 01:08 02/06/20 09:37 Ativan IV 2 mg Q1HR PRN Administration CIWA-Ar 8-15 Lorazepam 4 mg 02/04/20 01:08 02/06/20 03:14 Ativan IV 4 mg Q1HR PRN Administration CIWA-Ar 16-25 Lorazepam 4 mg 02/04/20 01:08 Ativan IV Q15MIN PRN CIWA-Ar >25 Magnesium Hydroxide 30 ml 02/04/20 01:57 Milk Of Magnesia PO Q4H PRN Constipation Metoprolol Tartrate 50 mg 02/06/20 14:00 Metoprolol PO Q8HR [facility] Morphine Sulfate 2 mg 02/04/20 01:57 Morphine IV Q5MIN PRN Chest Pain unrelieved by NTG Nitroglycerin 0.4 mg 02/04/20 01:57 Nitrostat SL Q5M PRN Chest Pain Ondansetron HCl 4 mg 02/04/20 01:57 02/05/20 08:04 Zofran IV 4 mg Q8H PRN Administration Nausea And Vomiting Sodium Chloride 10 ml 02/04/20 10:00 02/06/20 09:42 Sodium Chloride Flush Syringe 10 Ml IV 10 ml BID DI Administration Sodium Chloride 10 ml 02/04/20 01:57 Sodium Chloride Flush Syringe 10 Ml IV PRN PRN LINE FLUSH Spironolactone 25 mg 02/04/20 11:02/06/20 09:41 Aldactone PO 25 mg QDAY DI Administration
[2020-02-06] MEDS: DIGOXIN 0.5 MG/2 ML INJ IV SCH ×2 (13:05→17:18)
[2020-02-06] MEDS: METOPROLOL TARTRATE 50 MG TAB PO SCH ×2 (13:05→21:44)
[2020-02-06] MEDS: ONDANSETRON 4 MG/2 ML INJ IV PRN (17:23)
[2020-02-07] MEDS: METOPROLOL TARTRATE 50 MG TAB PO SCH (05:20)
--- NOTE | 2020-02-07 08:39 | Discharge Summary ---
Providers - Providers Date of Admission: 02/04/20 02:57 Date of discharge: 02/07/20 Attending physician: DAPHNE HINTON 02/04/20 Consult to Cardiac Rehabilitation [CONS] Routine Reason For Exam: Phase I 02/04/20 01:57 Consult to Cardiology [CONS] Routine Consulting Provider: LIT CEDILLO Reason For Exam: chest pain 02/06/20 01:53 Consult to PICC Line RN [CONS] Routine Reason For Exam: difficult stick Type Line:: Midline Primary care physician: [employer] Hospitalization Reason for admission: afib rvr, etoh abuse Condition: Fair Hospital course: Patient is a 54-year-old male with history of dilated nonischemic cardiomyopathy, chronic systolic left ventricular failure, chronic atrial fibrillation, and has a cardiac defibrillator in situ who presented with diagnosis of acute EtOH intoxication and A. fib with RVR. He is on guideline directed medical therapy for his chronic left ventricular dysfunction, and a rate control strategy of atrial fibrillation, and Eliquis for oral anticoagulation. 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 On his recent admission we found the left ventricular systolic ejection fraction 25 to 30%, which appears consistent with his historical numbers. The patient's most important comorbidity is chronic alcohol abuse. On his last admission, his primary reason for presentation to the hospital was alcohol intoxication. On his presentation, his alcohol level was 0.41. On review of systems he reported some positional and palpable musculoskeletal type chest pain. Cardiology consultation was requested. ECG on presentation was atrial fibrillation with well-controlled ventricular rate. Cardiology treated the patient with IV diltiazem and patient was initially seen in ICU. Patient was later transition to digitalis and beta-randa p.o. heart rate eventually stabilized and patient was transferred to telemetry floor. Cardiology felt that no additional work-up was needed and patient could be discharged home with carvedilol switched to metoprolol and digitalis. Patient's alcohol withdrawal resolved with [facility] protocol. Therefore, patient will be discharged home. Dedicated discharge time 35 minutes Disposition: [id number] TO HOME OR SELFCARE Time spent for discharge: 35 - Discharge Diagnoses (1) Acute alcohol intoxication Status: Acute (2) Chest pain Status: Acute (3) Costochondritis Status: Acute (4) Nonischemic cardiomyopathy Status: Acute Core Measure Documentation - Palliative Care Palliative Care/ Comfort Measures: Not Applicable - Core Measures Any of the following diagnoses?: none Exam - Constitutional Vitals: Temp Pulse Resp BP Pulse Ox 97.7 F 75 16 108/72 95 02/07/20 03:33 02/07/20 05:20 02/07/20 03:33 02/07/20 05:20 02/07/20 03:33 General appearance: Present: no acute distress, well-nourished - EENT Eyes: Present: PERRL ENT: hearing intact, clear oral mucosa - Neck Neck: Present: supple, normal ROM - Respiratory Respiratory effort: normal Respiratory: bilateral: CTA - Cardiovascular Heart Sounds: Present: S1 & S2. Absent: rub, click - Extremities Extremities: pulses symmetrical, No edema Peripheral Pulses: within normal limits - Abdominal General gastrointestinal: Present: soft, non-tender, non-distended, normal bowel sounds Male genitourinary: Present: normal - Integumentary Integumentary: Present: clear, warm, dry - Musculoskeletal Musculoskeletal: gait normal, strength equal bilaterally - Psychiatric Psychiatric: appropriate mood/affect, intact judgment & insight - Neurologic Neurologic: CNII-XII intact, moves all extremities Plan Activity: advance as tolerated Weight Bearing Status: Weight Bear as Tolerated Diet: regular Follow up with: PRIMARY CAREMD [Primary Care Provider] - 3-5 Days YISEL REZA MD [Staff Physician] - 7 Days Prescriptions: Spironolactone [Aldactone] 25 mg PO QDAY #30 tablet Apixaban [Eliquis] 5 mg PO Q12HR #60 tablet Aspirin EC [Halfprin EC] 81 mg PO QDAY #30 tablet Digoxin [Lanoxin] 0.25 mg PO DAILY@1700 #30 tablet Furosemide [Lasix TAB] 20 mg PO QDAY #30 tablet Metoprolol [Lopressor TAB] 50 mg PO Q8HR #90 tablet Nitroglycerin [Nitrostat] 0.4 mg SL Q5M PRN #10 tablet PRN Reason: Chest Pain lisinopriL [Zestril TAB] 5 mg PO QDAY #30 tablet
[2020-02-07] MEDS: ASPIRIN 81 MG TAB CHEW PO SCH (09:14)
[2020-02-07] MEDS: APIXABAN 5 MG TAB PO SCH (09:14)
[2020-02-07] MEDS: FUROSEMIDE 20 MG TAB PO SCH (09:14)
[2020-02-07] MEDS: SPIRONOLACTONE 25 MG TAB PO SCH (09:14)
[2020-02-07 09:15] VITALS: BP 118/84
[2020-02-07] MEDS: LISINOPRIL 5 MG TAB PO SCH (09:15)
--- NOTE | 2020-02-07 09:54 | Progress Note ---
Assessment and Plan 1. Chronic combined systolic and diastolic heart failure 2. Dilated nonischemic cardiomyopathy left ventricular ejection fraction 25 to 30% 3. Chronic atrial fibrillation 4. Presence of AICD 5. Alcoholism presenting with intoxication and withdrawal 6. History of noncompliance on medication Plan. Cardiac desir stable ventricular response to atrial fibrillation controlled continue present medication as well as anticoagulation. Subjective Date of service: 02/07/20 Interval history: No specific cardiac complains Objective Vital Signs Temp Pulse Pulse Resp BP Pulse Ox 02/07/20 09:15 71 118/84 02/07/20 09:14 71 118/84 02/07/20 07:55 97.6 F 70 18 116/83 96 02/07/20 05:20 75 108/72 02/07/20 03:33 97.7 F 75 16 108/72 95 02/07/20 00:56 63 02/07/20 00:32 69 02/07/20 00:06 98.0 F 79 16 100/73 95 02/06/20 21:44 86 121/88 02/06/20 20:00 86 16 95 02/06/20 19:51 95 H 02/06/20 19:46 98.1 F 86 16 121/88 95 02/06/20 17:18 97 H 02/06/20 15:57 98.4 F 76 20 112/86 96 02/06/20 14:50 92 H 17 101/79 02/06/20 14:41 83 18 101/79 02/06/20 14:31 85 17 101/79 02/06/20 14:21 97 H 19 101/79 02/06/20 14:11 102 H 13 101/79 02/06/20 14:01 94 H 18 105/82 02/06/20 13:51 92 H 17 105/82 02/06/20 13:41 87 15 105/82 02/06/20 13:36 84 02/06/20 13:31 96 H 21 105/82 02/06/20 13:21 121 H 21 105/82 02/06/20 13:11 103 H 17 105/82 02/06/20 13:05 110 H 101/79 02/06/20 13:01 113 H 14 105/82 02/06/20 12:51 102 H 14 105/82 02/06/20 12:41 110 H 16 105/82 02/06/20 12:31 94 H 18 105/82 02/06/20 12:21 109 H 13 101/79 02/06/20 12:13 89 19 101/79 02/06/20 12:00 97.6 F 89 19 97 02/06/20 10:31 105/82 98 02/06/20 10:21 120 H 12 105/82 100 02/06/20 10:11 116 H 19 105/82 99 02/06/20 10:01 143 H 20 105/82 99 - Physical Examination General: No Apparent Distress HEENT: Positive: PERRL Neck: Positive: trachea midline Cardiac: Positive: Regular Rate, S1/S2, S3, PMI, Dilated, Laterally Displaced Lungs: Positive: clear to auscultation, No Wheeze, Rales, Rhonchi Neuro: Positive: Grossly Intact Abdomen: Positive: Unremarkable, Soft, Active Bowel Sounds Extremities: Absent: edema
[2020-02-07] MEDS ORDERED: DIGOXIN 0.25 MG TAB PO SCH (17:00)
== END 2020-02-07 13:45 | disposition home or self-care (01) ==
LOC: ED 22:25 → 4A 02-04 02:57 → IMCU 02-04 15:08 → 4A 02-06 14:59
PROVIDERS: ADMIT Internal Medicine Geriatric Medicine; ATTEND Hospitalist
DX: M94.0 Chondrocostal junction syndrome [Tietze] (principal); I42.8 Other cardiomyopathies; I48.20 Chronic atrial fibrillation, unspecified; I11.0 Hypertensive heart disease with heart failure; I50.42 Chronic combined systolic (congestive) and diastolic (congestive) heart failure; J44.9 Chronic obstructive pulmonary disease, unspecified; E78.5 Hyperlipidemia, unspecified; I25.10 Atherosclerotic heart disease of native coronary artery without angina pectoris; F17.200 Nicotine dependence, unspecified, uncomplicated; F10.239 Alcohol dependence with withdrawal, unspecified; F10.229 Alcohol dependence with intoxication, unspecified; Z95.810 Presence of automatic (implantable) cardiac defibrillator; Z91.19 Patient's noncompliance with other medical treatment and regimen; Z71.6 Tobacco abuse counseling; Z93.3 Colostomy status; Z79.82 Long term (current) use of aspirin; Z79.01 Long term (current) use of anticoagulants; Z79.899 Other long term (current) drug therapy
CPT/HCPCS: 36415; 71045; 80048; 80061; 82550; 82553; 84484; 85025; 85610; 87641; 93005; 96372; 96374; 96375; 96376; 99285; 99406; G0378; J1160; J1644; J2060; J2270; J2405; 80320; G0480